=== PATIENT | male | born 1970 | race Hispanic/Latino ===

== ENCOUNTER 2017-07-06 08:27 | Emergency (ER) | payer OTHER ==
[2017-07-06 08:31] VITALS: BMI 35.9
[2017-07-06 08:34] VITALS: BP 135/86; RESP 18; TEMP 98.1
[2017-07-06 09:17] VITALS: PULSE 82; O2SAT 100
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
[2017-07-06] MEDS ORDERED: Lidocaine 5% Patch TD SCH (10:00)
== END 2017-07-06 10:35 | disposition home or self-care (01) ==
LOC: ED 08:27
DX: S39.012A Strain of muscle, fascia and tendon of lower back, initial encounter (principal); X50.9XXA Other and unspecified overexertion or strenuous movements or postures, initial encounter
CPT/HCPCS: 96372; 99284; J1885

== ENCOUNTER 2017-07-11 08:28 | Emergency (ER) | payer OTHER ==
[2017-07-11 08:29] VITALS: BMI 35.9
[2017-07-11 08:49] VITALS: BP 127/84; PULSE 105; RESP 16; TEMP 97.5; O2SAT 96
[2017-07-11] MEDS ORDERED: Lidocaine 5% Patch TD STA (08:53)
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
== END 2017-07-11 10:00 | disposition home or self-care (01) ==
LOC: ED 08:28
DX: M54.5 Low back pain (principal); S39.012A Strain of muscle, fascia and tendon of lower back, initial encounter; X50.9XXA Other and unspecified overexertion or strenuous movements or postures, initial encounter
CPT/HCPCS: 96372; 99283; J1885

== ENCOUNTER 2017-08-09 13:12 | Emergency (ER) | payer OTHER ==
[2017-08-09 13:13] VITALS: BMI 35.9
[2017-08-09 13:32] VITALS: TEMP 98.5; O2SAT 98
[2017-08-09] MEDS ORDERED: Lidocaine 5% Patch TD STA (13:52)
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
[2017-08-09 15:16] VITALS: BP 128/75; PULSE 94; RESP 18
== END 2017-08-09 15:19 | disposition home or self-care (01) ==
LOC: ED 13:12
DX: M54.5 Low back pain (principal)
CPT/HCPCS: 96372; 99282; J1885

== ENCOUNTER 2017-08-22 15:08 | Inpatient (IN) | payer OTHER ==
[2017-08-22 15:16] VITALS: BMI 35.2
[2017-08-22] MEDS ORDERED: Piperacillin/Tazobact 3.375 gm 100 ML IVPB STA (15:23)
[2017-08-22] MEDS ORDERED: Vancomycin 500 mg Inj IVPB ONE (15:23)
[2017-08-22] MEDS ORDERED: Oxycodone/Acetaminophen 10/325 mg Tab PO STA (15:26)
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
[2017-08-22] MEDS ORDERED: Sodium Chloride 0.9% 1,000 ML IV STA (15:32)
[2017-08-22] MEDS ORDERED: Vancomycin 1.75 GM in Sodium Chloride 0.9% 500 ML IVPB ONE (15:45)
[2017-08-22 15:53] LABS: BASO # 0.02 K/mm3 (0.0-2.0); BASO % 0.2 % (0.0-3.0); EOS # 0.2 (0.0-0.7); EOS % 1.6 % (1.5-5.0); GRAN # 8.21 (1.4-6.5); GRAN % 75.4 % (50.0-68.0); HEMATOCRIT 36.5 % (42.0-52.0); LYMPH # 1.7 (1.2-3.4); LYMPH % 15.6 % (22.0-35.0); MEAN CELL VOLUME 78.2 fl (80.0-105.0); MEAN CORPUSCULAR HEMOGLOBIN 25.7 pg (25.0-35.0); MEAN CORPUSCULAR HGB CONC 32.9 g/dl (31.0-37.0); MEAN PLATELET VOLUME 9.8 fl (7.0-11.0); MONO # 0.8 (0.1-0.6); MONO % 7.2 % (1.0-6.0); RED CELL DISTRIBUTION WIDTH 15.2 % (11.5-14.5); WHITE BLOOD COUNT 10.9 10^3/ul (4.5-11.0)
[2017-08-22 16:04] LABS: GFR AFRICAN-AMERICAN > 60; GLUCOSE,RANDOM 102 mg/dL (70-110); TOTAL PROTEIN 8.9 g/dL (5.8-8.3)
[2017-08-22 16:43] LABS: ALB/GLOB RATIO 0.8 (1.1-1.8); ALKALINE PHOSPHATASE 111 U/L (38-126); ALT/SGPT 30 U/L (7-56); AST/SGOT 49 U/L (17-59); BLOOD UREA NITROGEN 21 mg/dL (7-21); CARBON DIOXIDE 25 mmol/L (21-33); CHLORIDE 103 mmol/L (98-107); POTASSIUM 3.7 mmol/L (3.6-5.0); SODIUM 142 mmol/L (132-148)
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
[2017-08-22] MEDS ORDERED: Influenza Vaccine 60 mcg/0.5 mL SYR (4YR UP) IM ONE (20:02)
[2017-08-22] MEDS ORDERED: Pneumococcal 23-Valent Vaccine IM ONE (20:02)
[2017-08-22 21:03] LABS: PH,URINE 5.5 (4.7-8.0); URINE BILIRUBIN NEGATIVE (NEGATIVE); URINE BLOOD MODERATE (NEGATIVE); URINE GLUCOSE (UA) NEGATIVE (NEGATIVE); URINE KETONE NEGATIVE (NEGATIVE); URINE LEUKOCYTE ESTERASE SMALL Leu/uL (NEGATIVE); URINE PROTEIN TRACE mg/dL (<30 mg/dL)
[2017-08-22 21:08] LABS: URINE APPEARANCE SL CLOUDY (CLEAR); URINE COLOR YELLOW (YELLOW)
[2017-08-22 21:17] LABS: URINE BACTERIA MOD (NEG)
[2017-08-22] MEDS: Piperacillin/Tazobact 3.375 gm 100 ML IVPB SCH (21:44)
[2017-08-22] MEDS ORDERED: Vancomycin 1gm in NS 250ml 1 GM/250 ML BAG IVPB SCH (22:00)
[2017-08-23] MEDS: Piperacillin/Tazobact 3.375 gm 100 ML IVPB SCH ×4 (04:59→17:00)
[2017-08-23] MEDS: Vancomycin 1gm in NS 250ml 1 GM/250 ML BAG IVPB SCH ×3 (05:55→21:28)
[2017-08-23 07:14] LABS: BASO # 0.02 K/mm3 (0.0-2.0); BASO % 0.3 % (0.0-3.0); EOS # 0.2 (0.0-0.7); EOS % 2.4 % (1.5-5.0); GRAN # 5.57 (1.4-6.5); GRAN % 71.5 % (50.0-68.0); HEMATOCRIT 33.3 % (42.0-52.0); LYMPH # 1.4 (1.2-3.4); LYMPH % 17.5 % (22.0-35.0); MEAN CELL VOLUME 78.4 fl (80.0-105.0); MEAN CORPUSCULAR HEMOGLOBIN 24.9 pg (25.0-35.0); MEAN CORPUSCULAR HGB CONC 31.8 g/dl (31.0-37.0); MEAN PLATELET VOLUME 9.4 fl (7.0-11.0); MONO # 0.7 (0.1-0.6); MONO % 8.3 % (1.0-6.0); RED CELL DISTRIBUTION WIDTH 15.2 % (11.5-14.5); WHITE BLOOD COUNT 7.8 10^3/ul (4.5-11.0)
[2017-08-23 07:39] LABS: SODIUM 140 mmol/L (132-148)
[2017-08-23 08:10] LABS: ALB/GLOB RATIO 0.8 (1.1-1.8); ALKALINE PHOSPHATASE 87 U/L (38-126); ALT/SGPT 34 U/L (7-56); AST/SGOT 28 U/L (17-59); BILIRUBIN,TOTAL 0.8 mg/dL (0.2-1.3); BLOOD UREA NITROGEN 19 mg/dL (7-21); CALCIUM 9.4 mg/dL (8.4-10.5); CARBON DIOXIDE 22 mmol/L (21-33); CHLORIDE 107 mmol/L (98-107); GFR AFRICAN-AMERICAN > 60; GLUCOSE,RANDOM 84 mg/dL (70-110); POTASSIUM 3.8 mmol/L (3.6-5.0); TOTAL PROTEIN 7.7 g/dL (5.8-8.3)
[2017-08-23 09:14] LABS: TOTAL PROTEIN, SERUM 8.6 g/dL (6.1-8.1)
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
--- NOTE | 2017-08-23 10:08 | RAD ---
HISTORY: COMPARISON: 01/17/2016. TECHNIQUE: Chest PA and lateral FINDINGS: LINES AND TUBES: None. LUNG AND PLEURA: The lungs are well inflated and clear. HEART AND MEDIASTINUM: The heart is not enlarged. The hilar and mediastinal contours are within normal limits. SKELETAL STRUCTURES: The bony structures are within normal limits for the patient's age. VISUALIZED UPPER ABDOMEN: Normal. OTHER FINDINGS: None. IMPRESSION: No active pulmonary disease.
--- NOTE | 2017-08-23 10:13 | PN ---
DATE: LOCATION: The patient is in [facility] in [place], room 564, bed 2. SUBJECTIVE: He was admitted yesterday with lesion in his disk at lumbar 2 and 3 with effacement of the disk and question of infection involving the diarrhea. The patient had no fever at the time of examination. The patient complained of pain which is localized tenderness in the area of the lumbar vertebrae. The patient's past history is significant for diarrhea. He has had sepsis in the past, osteomyelitis and he had prosthesis in the left hip. He has had renal colic. The patient has had treatment for wound infection. The patient is seen this morning. PHYSICAL EXAMINATION VITAL SIGNS: His temperature is 97.7, his heart rate is 89, his blood pressure is 146/87, and O2 saturation on room air is 98%. HEAD AND NECK: Head is normocephalic. The patient's neck, the thyroid is not enlarged. Carotid pulses are present. HEART: NSR. S1 and S2 present. No murmurs. LUNGS: Trachea is central. Breath sounds are vesicular. No adventitious sounds. ABDOMEN: Soft. Liver and spleen not palpable. No tenderness. No masses. CENTRAL NERVOUS SYSTEM: The patient is conscious, rational and oriented. The patient has no focal neurological deficits. MUSCULOSKELETAL: He has a limp and deformity of the left leg. ASSESSMENT AND PLAN: The patient's x-ray showed evidence of a lesion between lumbar 2 and 3. The disk is effaced. On the left leg, there is an ulcer in the medial malleolar area, does not discharge, but patient denies any pain on palpation. He will be seen by a asian studies professor, Dr. Quinones of Infectious Disease [facility] consultant, is going to see the patient regarding the lesion and the management of possible infection in this area. The patient's medication for pain will be Ultram. The patient will have a bone scan done to rule out diagnosis of acute infection or pathology otherwise. The patient has been advised that when he is well, the patient should get a colonoscopy. There is a family history of colon cancer on the father's side, he is . We will x-ray the leg, do a chest x-ray, and electrocardiogram; these are ancillary test as needed at this time. Berna Bernard MD [facility]
[2017-08-23] MEDS: Oxycodone/Acetaminophen 5/325 mg Tab PO PRN (12:47)
--- NOTE | 2017-08-23 13:02 | RAD ---
PROCEDURE: Left Ankle Radiographs. HISTORY: arthritis, ulcer left ankle COMPARISON: None FINDINGS: BONES: Normal. No fracture. JOINTS: Normal. No osteoarthritis. Ankle mortise maintained. Talar dome intact SOFT TISSUES: Normal. OTHER FINDINGS: None. IMPRESSION: No acute fracture
--- NOTE | 2017-08-23 15:34 | US ---
PROCEDURE: Lower extremity ALBINA exam HISTORY: Peripheral vascular disease with pain and ulceration. PHYSICIAN(S): Prem Palmer MD. FINDINGS: The resting ALBINA's are normal: right, 1.25and left, 1.22. The brachial systolic pressures are symmetric. The high thigh pressures and waveforms are relatively normal. The calf PVR waveforms augment normally. No significant gradients are noted across the thighs. The ankle and metatarsal waveforms are relatively normal and symmetric. No significant pressure gradients are noted across the lower legs. IMPRESSION: 1. Normal ALBINA and PVR examination at rest.
--- NOTE | 2017-08-23 17:33 | NM ---
PROCEDURE: Three-phase bone scans HISTORY: Osteomyelitis suspected. Anatomic location of suspected osteomyelitis is not provided COMPARISON: 12/20/2015 three-phase bone scan new lines 08/23/2017 left ankle radiographs. TECHNIQUE: Following administration of 29.6 miCu of Tc MDP multiplanar whole body images were obtained. FINDINGS: Flow component: Unremarkable without focal abnormality Blood pool component: Increased uptake in the soft tissues of the right lower extremity compared to the left. Delayed images at 3:00: Intense retention of radionuclide right calcaneus compared to left os calcis. Degenerative changes left ankle. Other findings: None. IMPRESSION: No evidence of acute osseous process. Additional benign and/or incidental findings described above.
--- NOTE | 2017-08-23 21:53 | CARD ---
APPROVED REPORT EKG Measurement Heart [id number] <Conclusion> Normal sinus rhythm Possible Inferior infarct, age undetermined Abnormal ECG
[2017-08-24] MEDS: Piperacillin/Tazobact 3.375 gm 100 ML IVPB SCH ×5 (00:10→23:35)
[2017-08-24] MEDS: Pantoprazole 40 mg EC Tab PO SCH (05:13)
--- NOTE | 2017-08-24 08:18 | CP.PCM.PN ---
Subjective - Date & Time of Evaluation Date of Evaluation: 08/24/17 Time of Evaluation: 07:45 - Subjective Subjective: Patient is in room 564 bed 2. He complains of back pain. Objective - Vital Signs/Intake and Output Vital Signs (last 24 hours): Temp Pulse Resp BP Pulse Ox 98.2 F 84 20 132/78 95 08/24/17 07:30 08/24/17 07:30 08/24/17 07:30 08/24/17 07:30 08/24/17 07:30 Intake and Output: 08/24/17 08/24/17 06:59 18:59 Intake Total 1200 Output Total 1800 Balance -600 - Medications Medications: Current Medications Acetaminophen (Tylenol 325mg Tab) 650 mg PO Q4H PRN PRN Reason: Pain, moderate (4-7) Piperacillin Sod/Tazobactam Sod (Zosyn 3.375 In Ns 100ml) 100 mls @ 200 mls/hr IVPB Q6 CARIDAD PRN Reason: Protocol Stop: 08/29/17 22:01 Last Admin: 08/24/17 05:13 Dose: 200 mls/hr Vancomycin HCl (Vancomycin 1gm) 1 gm in 250 mls @ 167 mls/hr IVPB Q12 CARIDAD PRN Reason: Protocol Last Admin: 08/23/17 21:28 Dose: 167 mls/hr Mupirocin (Bactroban Ointment) 0 gm TOP BID CARIDAD Last Admin: 08/23/17 16:59 Dose: 1 applic Oxycodone/Acetaminophen (Percocet 5/325 Mg Tab) 1 tab PO Q4H PRN PRN Reason: Pain, moderate (4-7) Stop: 08/26/17 12:27 Last Admin: 08/23/17 12:47 Dose: 1 tab Pantoprazole Sodium (Protonix Ec Tab) 40 mg PO 0600 [facility] Last Admin: 08/24/17 05:13 Dose: 40 mg Tramadol HCl (Ultram) 50 mg PO TID PRN PRN Reason: Pain, severe (8-10) Last Admin: 08/23/17 09:21 Dose: 50 mg - Labs Labs: 08/23/17 06:40 08/23/17 06:40 - Constitutional Appears: No Acute Distress - Head Exam Head Exam: ATRAUMATIC, NORMOCEPHALIC - Respiratory Exam Respiratory Exam: Clear to Ausculation Bilateral, NORMAL BREATHING PATTERN - Cardiovascular Exam Cardiovascular Exam: +S1, +S2 - GI/Abdominal Exam GI & Abdominal Exam: Soft, Normal Bowel Sounds. absent: Tenderness - Neurological Exam Neurological Exam: Alert, Awake, Oriented x3 Assessment and Plan - Assessment and Plan (Free Text) Assessment: L2-L3 disk space infection?? Left ankle ulceration Back pain H/O kidney stones H/O left hip arthroplasty Plan: Patient had CT spine as outpatient which shows disk space infection between L2 and L3. Patient could not undergo MRI due to pins in his left hip from surgery many years ago. Bone Scan was done which does not show any findings in the spine. SPEP and UPEP are pending Left ankle wound culture is pending. continue antibiotics as per infectious disease. urine culture is pending. continue Percocet for pain. Podiatry and infectious disease consultations appreciated. will order iron infusion for low iron. Patient has been advised to have colonoscopy as outpatient.
[2017-08-24] MEDS: Vancomycin 1gm in NS 250ml 1 GM/250 ML BAG IVPB SCH ×2 (09:54→21:31)
--- NOTE | 2017-08-24 11:00 | CP.PCM.PCO ---
Physician Communication Note - Physician Communication Note Physician Communication Note: Tests being done,unable to examine;started Vanco/ Zosyn;Neurosurg eval asked
--- NOTE | 2017-08-24 12:08 | CP.PCM.PN ---
<Elliott Castaneda - Last Filed: 08/24/17 12:04> Subjective - Date & Time of Evaluation Date of Evaluation: 08/24/17 Time of Evaluation: 12:04 - Subjective Subjective: 47 y/o male seen and evaluated at bedside with attending Dr. Nicholson for chronic left lateral leg wound. Patient appears to be resting comfortably in his bed and appears in NAD. Patient is AAOx3 and denies of any acute overnight events. Patient states that he has been receiving abx and is feeling a lot better. Patient denies of F/N/V/C/SOB/CP today. Patient denies of any other pedal complains at this time. Objective - Vital Signs/Intake and Output Vital Signs (last 24 hours): Temp Pulse Resp BP Pulse Ox 98.2 F 84 20 132/78 95 08/24/17 07:30 08/24/17 07:30 08/24/17 07:30 08/24/17 07:30 08/24/17 07:30 Intake and Output: 08/24/17 08/24/17 06:59 18:59 Intake Total 1200 Output Total 1800 Balance -600 - Medications Medications: Current Medications Acetaminophen (Tylenol 325mg Tab) 650 mg PO Q4H PRN PRN Reason: Pain, moderate (4-7) Piperacillin Sod/Tazobactam Sod (Zosyn 3.375 In Ns 100ml) 100 mls @ 200 mls/hr IVPB Q6 CARIDAD PRN Reason: Protocol Stop: 08/29/17 22:01 Last Admin: 08/24/17 11:54 Dose: 200 mls/hr Vancomycin HCl (Vancomycin 1gm) 1 gm in 250 mls @ 167 mls/hr IVPB Q12 CARIDAD PRN Reason: Protocol Last Admin: 08/24/17 09:54 Dose: 167 mls/hr Mupirocin (Bactroban Ointment) 0 gm TOP BID [facility] Last Admin: 08/24/17 11:23 Dose: 1 applic Oxycodone/Acetaminophen (Percocet 5/325 Mg Tab) 1 tab PO Q4H PRN PRN Reason: Pain, moderate (4-7) Stop: 08/26/17 12:27 Last Admin: 08/23/17 12:47 Dose: 1 tab Pantoprazole Sodium (Protonix Ec Tab) 40 mg PO 0600 [facility] Last Admin: 08/24/17 05:13 Dose: 40 mg Tramadol HCl (Ultram) 50 mg PO TID PRN PRN Reason: Pain, severe (8-10) Last Admin: 08/23/17 09:21 Dose: 50 mg - Labs Labs: 08/23/17 06:40 08/23/17 06:40 - Constitutional Appears: Well, Non-toxic, No Acute Distress - Extremities Exam Extremities Exam: absent: Calf Tenderness Additional comments: Bilateral LE exam VASC: DP/PT pulses are palpable on the right foot but non-palpable on the left foot, MAIL CLERK: < 3 sec to all digits, TG: warm to cool from proximal to distal on the right LE and cool to cool on the left LE, no pitting or non-pitting edema noted on the left LE DERM: Wound measuring approximately 3.7cm x 3.5cmx 0.1 cm noted on the distal lateral aspect of the left leg, minimal serous and purulent drainage noted on the bandage which appears to be a lot less than yesterday, no malodor, surrounding erythema present, no tunneling, no undermining, no inter digital maceration noted b/l NEURO: Protective sensation grossly intact ORTHO: mild tenderness on palpation of the wound site, Limb length is shorter on the left compared to the right LE - Neurological Exam Neurological Exam: Alert, Awake, Oriented x3 - Psychiatric Exam Psychiatric exam: Normal Affect, Normal Mood Assessment and Plan - Assessment and Plan (Free Text) Assessment: 47 y/o male seen and evaluated at bedside for chronic infected left lateral leg wound Plan: Patient seen and evaluated at bedside with Dr. Marcial Labs, vitals and charts reviewed: Afebrile and WBC @ 7.8 as of yesterday ( trending down) Cultures (Prelim): G+ cocci Dressing applied using Bactroban, optifoam, SHOAIB bandage Arterial duplex shows normal ALBINA/PVR No evidence of acute osseous events seen on bone scan Patient is currently on abx - IV abx as per ID - ID on board Podiatry will continue to follow patient while in house <Sharif Nicholson - Last Filed: 08/24/17 18:21> Objective - Vital Signs/Intake and Output Vital Signs (last 24 hours): Temp Pulse Resp BP Pulse Ox 98 F 84 18 132/83 99 08/24/17 16:00 08/24/17 16:00 08/24/17 16:00 08/24/17 16:00 08/24/17 16:00 Intake and Output: 08/24/17 08/24/17 06:59 18:59 Intake Total 1200 540 Output Total 1800 Balance -600 540 - Medications Medications: Current Medications Acetaminophen (Tylenol 325mg Tab) 650 mg PO Q4H PRN PRN Reason: Pain, moderate (4-7) Piperacillin Sod/Tazobactam Sod (Zosyn 3.375 In Ns 100ml) 100 mls @ 200 mls/hr IVPB Q6 CARIDAD PRN Reason: Protocol Stop: 08/29/17 22:01 Last Admin: 08/24/17 17:49 Dose: 200 mls/hr Vancomycin HCl (Vancomycin 1gm) 1 gm in 250 mls @ 167 mls/hr IVPB Q12 CARIDAD PRN Reason: Protocol Last Admin: 08/24/17 09:54 Dose: 167 mls/hr Mupirocin (Bactroban Ointment) 0 gm TOP BID [facility] Last Admin: 08/24/17 11:23 Dose: 1 applic Oxycodone/Acetaminophen (Percocet 5/325 Mg Tab) 1 tab PO Q4H PRN PRN Reason: Pain, moderate (4-7) Stop: 08/26/17 12:27 Last Admin: 08/23/17 12:47 Dose: 1 tab Pantoprazole Sodium (Protonix Ec Tab) 40 mg PO 0600 [facility] Last Admin: 08/24/17 05:13 Dose: 40 mg Tramadol HCl (Ultram) 50 mg PO TID PRN PRN Reason: Pain, severe (8-10) Last Admin: 08/23/17 09:21 Dose: 50 mg - Labs Labs: 08/23/17 06:40 08/23/17 06:40 Attending/Attestation - Attestation I have personally seen and examined this patient.: Yes I have fully participated in the care of the patient.: Yes I have reviewed all pertinent clinical information, including history, physical exam and plan: Yes
[2017-08-24 12:19] LABS: ABNORMAL PROTEIN BAND 1 0.72 g/dL (None Detected); BETA 1 GLOBULIN 0.5 g/dL (0.4-0.6); BETA 2 GLOBULIN 1.7 g/dL (0.2-0.5); GAMMA GLOBULIN 1.5 g/dL (0.8-1.7)
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
[2017-08-25] MEDS: Oxycodone/Acetaminophen 5/325 mg Tab PO PRN (03:47)
[2017-08-25] MEDS: Piperacillin/Tazobact 3.375 gm 100 ML IVPB SCH ×4 (05:44→23:27)
[2017-08-25] MEDS: Pantoprazole 40 mg EC Tab PO SCH (06:58)
--- NOTE | 2017-08-25 08:31 | CP.PCM.PN ---
<Susan Solano - Last Filed: 08/25/17 08:28> Subjective - Date & Time of Evaluation Date of Evaluation: 08/25/17 Time of Evaluation: 07:28 - Subjective Subjective: 47 y/o male seen and evaluated at bedside with attending Dr. Nicholson for chronic left lateral leg wound. Patient appears to be resting comfortably in his bed, AAOx3 and denies of any acute overnight events. Patient denies of any pain to the ulceration site to left leg. Patient denies of F/N/V/C/SOB/CP today. Objective - Vital Signs/Intake and Output Vital Signs (last 24 hours): Temp Pulse Resp BP Pulse Ox 98 F 85 20 129/81 95 08/25/17 07:51 08/25/17 07:51 08/25/17 07:51 08/25/17 07:51 08/25/17 07:51 Intake and Output: 08/25/17 08/25/17 06:59 18:59 Intake Total 1750 Output Total 800 Balance 950 - Medications Medications: Current Medications Acetaminophen (Tylenol 325mg Tab) 650 mg PO Q4H PRN PRN Reason: Pain, moderate (4-7) Piperacillin Sod/Tazobactam Sod (Zosyn 3.375 In Ns 100ml) 100 mls @ 200 mls/hr IVPB Q6 [facility] PRN Reason: Protocol Stop: 08/29/17 22:01 Last Admin: 08/25/17 05:44 Dose: 200 mls/hr Vancomycin HCl (Vancomycin 1gm) 1 gm in 250 mls @ 167 mls/hr IVPB Q12 [facility] PRN Reason: Protocol Last Admin: 08/24/17 21:31 Dose: 167 mls/hr Mupirocin (Bactroban Ointment) 0 gm TOP BID [facility] Last Admin: 08/24/17 11:23 Dose: 1 applic Oxycodone/Acetaminophen (Percocet 5/325 Mg Tab) 1 tab PO Q4H PRN PRN Reason: Pain, moderate (4-7) Stop: 08/26/17 12:27 Last Admin: 08/25/17 03:47 Dose: 1 tab Pantoprazole Sodium (Protonix Ec Tab) 40 mg PO 0600 [facility] Last Admin: 08/25/17 06:58 Dose: 40 mg Tramadol HCl (Ultram) 50 mg PO TID PRN PRN Reason: Pain, severe (8-10) Last Admin: 08/23/17 09:21 Dose: 50 mg - Labs Labs: 08/23/17 06:40 08/23/17 06:40 - Constitutional Appears: Well - Head Exam Head Exam: ATRAUMATIC - Extremities Exam Additional comments: Bilateral LE exam DERM: Open wound noted to lateral aspect of left leg measuring approximately 4cm x 3.5cmx 0.3 cm noted on the distal lateral aspect of the left leg, minimal serosansuinous drainage noted on the bandage, no purulent drainage is noted, no malodor, surrounding erythema present <0.5cm margin, no tunneling, no undermining, no inter digital maceration noted b/l VASC: DP/PT pulses are palpable on the right foot but non-palpable on the left foot, CONDENSER TUBE TENDER: < 3 sec to all digits, TG: warm to cool from proximal to distal on the right LE and cool to cool on the left LE, no pitting or non-pitting edema noted on the left LE NEURO: Protective sensation grossly intact ORTHO: mild tenderness on palpation of the wound site, Limb length is shorter on the left compared to the right LE - Neurological Exam Neurological Exam: Alert, Awake, Oriented x3 - Psychiatric Exam Psychiatric exam: Normal Affect, Normal Mood - Skin Skin Exam: Normal Color, Warm Assessment and Plan - Assessment and Plan (Free Text) Assessment: 47 y/o male seen and evaluated at bedside for chronic infected left lateral leg wound Plan: Patient seen and evaluated at bedside with Dr. Nicholson Labs, vitals and charts reviewed: Afebrile Cultures (Prelim): G+ cocci Dressing applied using Bactroban, optifoam, SHOAIB bandage Arterial duplex shows normal ALBINA/PVR No evidence of acute osseous events seen on bone scan Patient is currently on abx - IV abx as per ID - ID on board Podiatry will continue to follow patient while in house <Sharif Nicholson - Last Filed: 08/25/17 08:39> Objective - Vital Signs/Intake and Output Vital Signs (last 24 hours): Temp Pulse Resp BP Pulse Ox 98 F 85 20 129/81 95 08/25/17 07:51 08/25/17 07:51 08/25/17 07:51 08/25/17 07:51 08/25/17 07:51 Intake and Output: 08/25/17 08/25/17 06:59 18:59 Intake Total 1750 Output Total 800 Balance 950 - Medications Medications: Current Medications Acetaminophen (Tylenol 325mg Tab) 650 mg PO Q4H PRN PRN Reason: Pain, moderate (4-7) Piperacillin Sod/Tazobactam Sod (Zosyn 3.375 In Ns 100ml) 100 mls @ 200 mls/hr IVPB Q6 [facility] PRN Reason: Protocol Stop: 08/29/17 22:01 Last Admin: 08/25/17 05:44 Dose: 200 mls/hr Vancomycin HCl (Vancomycin 1gm) 1 gm in 250 mls @ 167 mls/hr IVPB Q12 [facility] PRN Reason: Protocol Last Admin: 08/24/17 21:31 Dose: 167 mls/hr Mupirocin (Bactroban Ointment) 0 gm TOP BID [facility] Last Admin: 08/24/17 11:23 Dose: 1 applic Oxycodone/Acetaminophen (Percocet 5/325 Mg Tab) 1 tab PO Q4H PRN PRN Reason: Pain, moderate (4-7) Stop: 08/26/17 12:27 Last Admin: 08/25/17 03:47 Dose: 1 tab Pantoprazole Sodium (Protonix Ec Tab) 40 mg PO 0600 [facility] Last Admin: 08/25/17 06:58 Dose: 40 mg Tramadol HCl (Ultram) 50 mg PO TID PRN PRN Reason: Pain, severe (8-10) Last Admin: 08/23/17 09:21 Dose: 50 mg - Labs Labs: 08/23/17 06:40 08/23/17 06:40 Attending/Attestation - Attestation I have personally seen and examined this patient.: Yes I have fully participated in the care of the patient.: Yes I have reviewed all pertinent clinical information, including history, physical exam and plan: Yes
[2017-08-25] MEDS: Vancomycin 1gm in NS 250ml 1 GM/250 ML BAG IVPB SCH ×2 (09:48→22:03)
--- NOTE | 2017-08-25 10:59 | PN ---
DATE: LOCATION: The patient is in the [facility] in [place], room 562, bed 2. SUBJECTIVE: The patient was admitted with lesion in the lower spine lumbar area 2 and 3. The patient has pain in the back. The CT scan showed evidence of effacement and infection of the disk at space L2 and L3. The patient's past history is significant that he has had sepsis and osteomyelitis. The patient has had renal colic. This morning, the patient states that he seems to feel better. The pain has subsided. PHYSICAL EXAMINATION: VITAL SIGNS: His pulse is 85, blood pressure is 130/80, his respirations are 20, O2 saturation is 95% on room air, and temperature is 98.4. LUNGS: Clear. HEART: Normal sinus rhythm. ABDOMEN: Soft. Liver and spleen are not palpable. No tenderness. CENTRAL NERVOUS SYSTEM: No focal deficit. LABORATORY DATA: The patient's blood work shows that the patient has anemia and questionable anemia related to iron deficiency. The patient also had abnormal proteins in the blood. The patient's iron was low at 20. The patient's total protein is 8.6. The patient is on antibiotic treatment. IMPRESSION AND PLAN: At this time, the patient will be seen by retail seasonal specialist. Hematology consultation will be done by Dr. Arriola. The patient is seen by Dr. Quinones, his Infectious Disease automotive service consultant and we will continue on current management and will continue to followup on tests. MEDICATIONS: The patient is on local treatment with Bactroban for the ulcer of the ankle area of the left leg. The patient has pain medication with Percocet. The patient is on Protonix 40 mg daily. The patient is on tramadol 50 mg three times a day p.r.n. and vancomycin 1 gram q. 12 hours. The patient is on Zosyn 3.375 mg every 6 hours. He was given infusion of iron. DIAGNOSES: Possible infection in the spine and anemia. Overall prognosis is guarded and condition is improving. Berna Bernard MD [facility]
--- NOTE | 2017-08-25 14:48 | CP.PCM.PN ---
Subjective - Date & Time of Evaluation Date of Evaluation: 08/25/17 Time of Evaluation: 11:25 - Subjective Subjective: Patient has less back pain, able to walk around the medical floor corridors, no fevers overnight. No urinary or bowel incontinence. Objective - Vital Signs/Intake and Output Vital Signs (last 24 hours): Temp Pulse Resp BP Pulse Ox 98 F 85 20 129/81 95 08/25/17 07:51 08/25/17 07:51 08/25/17 07:51 08/25/17 07:51 08/25/17 07:51 Intake and Output: 08/25/17 08/25/17 06:59 18:59 Intake Total 1750 Output Total 800 Balance 950 - Medications Medications: Current Medications Acetaminophen (Tylenol 325mg Tab) 650 mg PO Q4H PRN PRN Reason: Pain, moderate (4-7) Piperacillin Sod/Tazobactam Sod (Zosyn 3.375 In Ns 100ml) 100 mls @ 200 mls/hr IVPB Q6 [facility] PRN Reason: Protocol Stop: 08/29/17 22:01 Last Admin: 08/25/17 05:44 Dose: 200 mls/hr Vancomycin HCl (Vancomycin 1gm) 1 gm in 250 mls @ 167 mls/hr IVPB Q12 [facility] PRN Reason: Protocol Last Admin: 08/25/17 09:48 Dose: 167 mls/hr Mupirocin (Bactroban Ointment) 0 gm TOP BID [facility] Last Admin: 08/25/17 08:00 Dose: 1 applic Oxycodone/Acetaminophen (Percocet 5/325 Mg Tab) 1 tab PO Q4H PRN PRN Reason: Pain, moderate (4-7) Stop: 08/26/17 12:27 Last Admin: 08/25/17 03:47 Dose: 1 tab Pantoprazole Sodium (Protonix Ec Tab) 40 mg PO 0600 [facility] Last Admin: 08/25/17 06:58 Dose: 40 mg Tramadol HCl (Ultram) 50 mg PO TID PRN PRN Reason: Pain, severe (8-10) Last Admin: 08/23/17 09:21 Dose: 50 mg - Labs Labs: 08/23/17 06:40 08/23/17 06:40 - Constitutional Appears: Non-toxic - Head Exam Head Exam: NORMAL INSPECTION - ENT Exam ENT Exam: Mucous Membranes Moist - Neck Exam Neck Exam: absent: Meningismus - Respiratory Exam Respiratory Exam: Decreased Breath Sounds - Cardiovascular Exam Cardiovascular Exam: +S1, +S2 - GI/Abdominal Exam GI & Abdominal Exam: Soft. absent: Tenderness Assessment and Plan - Assessment and Plan (Free Text) Plan: Assessment Possible L2-L3 disc space infection / discitis R/O osteomyelitis left hip arthroplasty and left hip prosthetic joint infection S/P treatment with antibiotics and surgery history of nephrolithiasis obesity with BMI 35 Plan continue Vancomycin and Zosyn day 2 pending final blood cx results (negative so far); ESR and CRP are both elevated; reviewed CT scan of the lumbar spine; bone scan has been done but did not show increased uptake in the area - would prefer to do MRI, but if this cannot be done, would suggest WBC scan May need at least 4-6 weeks of antibiotics if proven to be disc space infection suggest Neurosurgery evaluation will continue to monitor clinically
[2017-08-26] MEDS: Oxycodone/Acetaminophen 5/325 mg Tab PO PRN (03:32)
[2017-08-26] MEDS: Piperacillin/Tazobact 3.375 gm 100 ML IVPB SCH ×3 (06:47→17:28)
[2017-08-26] MEDS: Pantoprazole 40 mg EC Tab PO SCH (06:47)
[2017-08-26] MEDS: Vancomycin 1gm in NS 250ml 1 GM/250 ML BAG IVPB SCH ×2 (09:23→21:48)
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
--- NOTE | 2017-08-26 11:05 | CP.PCM.PN ---
<RussKarolineSocorro - Last Filed: 08/26/17 11:01> Subjective - Date & Time of Evaluation Date of Evaluation: 08/26/17 Time of Evaluation: 08:40 - Subjective Subjective: Podiatry note for Dr. Nicholson 47 y/o male seen and evaluated at bedside this AM for chronic left lateral leg wound. Patient appears to be resting comfortably in his bed, AAOx3 and denies of any acute overnight events. Patient admits to slight pain to the ulceration site to left leg when changing the dressing. Patient denies of F/N/V/C/SOB/CP today. Objective - Vital Signs/Intake and Output Vital Signs (last 24 hours): Temp Pulse Resp BP Pulse Ox 97.6 F 80 20 141/96 H 96 08/26/17 07:31 08/26/17 07:31 08/26/17 07:31 08/26/17 07:31 08/26/17 07:31 Intake and Output: 08/26/17 08/26/17 06:59 18:59 Intake Total 960 Balance 960 - Medications Medications: Current Medications Acetaminophen (Tylenol 325mg Tab) 650 mg PO Q4H PRN PRN Reason: Pain, moderate (4-7) Piperacillin Sod/Tazobactam Sod (Zosyn 3.375 In Ns 100ml) 100 mls @ 200 mls/hr IVPB Q6 [facility] PRN Reason: Protocol Stop: 08/29/17 22:01 Last Admin: 08/26/17 06:47 Dose: 200 mls/hr Vancomycin HCl (Vancomycin 1gm) 1 gm in 250 mls @ 167 mls/hr IVPB Q12 [facility] PRN Reason: Protocol Last Admin: 08/26/17 09:23 Dose: 167 mls/hr Mupirocin (Bactroban Ointment) 0 gm TOP BID [facility] Last Admin: 08/25/17 17:06 Dose: Not Given Oxycodone/Acetaminophen (Percocet 5/325 Mg Tab) 1 tab PO Q4H PRN PRN Reason: Pain, moderate (4-7) Stop: 08/26/17 12:27 Last Admin: 08/26/17 03:32 Dose: 1 tab Pantoprazole Sodium (Protonix Ec Tab) 40 mg PO 0600 [facility] Last Admin: 08/26/17 06:47 Dose: 40 mg Tramadol HCl (Ultram) 50 mg PO TID PRN PRN Reason: Pain, severe (8-10) Last Admin: 08/23/17 09:21 Dose: 50 mg - Labs Labs: 08/23/17 06:40 08/23/17 06:40 - Constitutional Appears: Well, Non-toxic, No Acute Distress - Head Exam Head Exam: ATRAUMATIC - Extremities Exam Additional comments: Bilateral LE exam DERM: Open wound noted to lateral aspect of left leg measuring approximately 4cm x 3.5cmx 0.3 cm noted on the distal lateral aspect of the left leg, minimal serosansuinous drainage noted on the bandage, no purulent drainage is noted, no malodor, surrounding erythema present <0.5cm margin, no tunneling, no undermining, no inter digital maceration noted b/l VASC: DP/PT pulses are palpable on the right foot but non-palpable on the left foot, MULTI PUNCH OPERATOR: < 3 sec to all digits, TG: warm to cool from proximal to distal on the right LE and cool to cool on the left LE, no pitting or non-pitting edema noted on the left LE NEURO: Protective sensation grossly intact ORTHO: mild tenderness on palpation of the wound site, Limb length is shorter on the left compared to the right LE - Neurological Exam Neurological Exam: Alert, Awake, Oriented x3 - Psychiatric Exam Psychiatric exam: Normal Affect, Normal Mood - Skin Skin Exam: Normal Color, Warm Assessment and Plan - Assessment and Plan (Free Text) Assessment: 47 y/o male seen and evaluated at bedside for chronic infected left lateral leg wound Plan: Patient seen and evaluated at bedside Labs, vitals and charts reviewed: Afebrile Cultures final; Staph Aureus Dressing applied using Bactroban, optifoam, SHOAIB bandage Arterial duplex shows normal ALBINA/PVR No evidence of acute osseous events seen on bone scan Patient is currently on abx - IV abx as per ID - ID on board Podiatry will continue to follow patient while in house <Sharif Nicholson - Last Filed: 08/29/17 11:15> Objective - Vital Signs/Intake and Output Vital Signs (last 24 hours): Temp Pulse Resp BP Pulse Ox 98.1 F 83 20 129/87 99 08/29/17 07:30 08/29/17 07:30 08/29/17 07:30 08/29/17 07:30 08/29/17 07:30 Intake and Output: 08/29/17 08/29/17 06:59 18:59 Intake Total 780 Output Total 800 Balance -20 - Medications Medications: Current Medications Acetaminophen (Tylenol 325mg Tab) 650 mg PO Q4H PRN PRN Reason: Pain, moderate (4-7) Mupirocin (Bactroban Ointment) 0 gm TOP BID [facility] Last Admin: 08/28/17 12:13 Dose: Not Given Pantoprazole Sodium (Protonix Ec Tab) 40 mg PO 0600 [facility] Last Admin: 08/29/17 06:01 Dose: 40 mg Tramadol HCl (Ultram) 50 mg PO TID PRN PRN Reason: Pain, severe (8-10) Last Admin: 08/28/17 01:11 Dose: 50 mg - Labs Labs: 08/27/17 09:15 08/28/17 06:30 PT 14.5 SECONDS (9.4-12.5) H 08/29/17 06:05 INR 1.31 (0.93-1.08) H 08/29/17 06:05 APTT 32.0 Seconds (25.1-36.5) 08/29/17 06:05 Attending/Attestation - Attestation I have personally seen and examined this patient.: Yes I have fully participated in the care of the patient.: Yes I have reviewed all pertinent clinical information, including history, physical exam and plan: Yes
--- NOTE | 2017-08-26 16:39 | CP.PCM.PN ---
Subjective - Date & Time of Evaluation Date of Evaluation: 08/26/17 Time of Evaluation: 15:25 - Subjective Subjective: Patient states his back is "80% better." He denies bowel or bladder incontinence , no fevers overnight. Objective - Vital Signs/Intake and Output Vital Signs (last 24 hours): Temp Pulse Resp BP Pulse Ox 97.6 F 80 20 141/96 H 96 08/26/17 07:31 08/26/17 07:31 08/26/17 07:31 08/26/17 07:31 08/26/17 07:31 Intake and Output: 08/26/17 08/26/17 06:59 18:59 Intake Total 960 Balance 960 - Medications Medications: Current Medications Acetaminophen (Tylenol 325mg Tab) 650 mg PO Q4H PRN PRN Reason: Pain, moderate (4-7) Piperacillin Sod/Tazobactam Sod (Zosyn 3.375 In Ns 100ml) 100 mls @ 200 mls/hr IVPB Q6 [facility] PRN Reason: Protocol Stop: 08/29/17 22:01 Last Admin: 08/26/17 06:47 Dose: 200 mls/hr Vancomycin HCl (Vancomycin 1gm) 1 gm in 250 mls @ 167 mls/hr IVPB Q12 [facility] PRN Reason: Protocol Last Admin: 08/25/17 22:03 Dose: 167 mls/hr Mupirocin (Bactroban Ointment) 0 gm TOP BID [facility] Last Admin: 08/25/17 17:06 Dose: Not Given Oxycodone/Acetaminophen (Percocet 5/325 Mg Tab) 1 tab PO Q4H PRN PRN Reason: Pain, moderate (4-7) Stop: 08/26/17 12:27 Last Admin: 08/26/17 03:32 Dose: 1 tab Pantoprazole Sodium (Protonix Ec Tab) 40 mg PO 0600 [facility] Last Admin: 08/26/17 06:47 Dose: 40 mg Tramadol HCl (Ultram) 50 mg PO TID PRN PRN Reason: Pain, severe (8-10) Last Admin: 08/23/17 09:21 Dose: 50 mg - Labs Labs: 08/23/17 06:40 08/23/17 06:40 - Constitutional Appears: Non-toxic - Head Exam Head Exam: NORMAL INSPECTION - ENT Exam ENT Exam: Mucous Membranes Moist - Neck Exam Neck Exam: absent: Lymphadenopathy, Meningismus - Respiratory Exam Respiratory Exam: Decreased Breath Sounds. absent: Rales - Cardiovascular Exam Cardiovascular Exam: +S1, +S2 - GI/Abdominal Exam GI & Abdominal Exam: Soft. absent: Tenderness Assessment and Plan - Assessment and Plan (Free Text) Plan: Assessment Possible L2-L3 disc space infection / discitis R/O osteomyelitis left hip arthroplasty and left hip prosthetic joint infection S/P treatment with antibiotics and surgery history of nephrolithiasis obesity with BMI 35 Plan continue Vancomycin and Zosyn day 3 pending final blood cx results (negative so far); ESR and CRP are both elevated; reviewed CT scan of the lumbar spine; bone scan has been done but did not show increased uptake in the area - would prefer to do MRI, but if this cannot be done, would suggest WBC scan May need at least 4-6 weeks of antibiotics if proven to be disc space infection awaiting Neurosurgery evaluation will continue to monitor clinically
[2017-08-27] MEDS: Piperacillin/Tazobact 3.375 gm 100 ML IVPB SCH ×5 (00:01→23:22)
[2017-08-27] MEDS: Pantoprazole 40 mg EC Tab PO SCH (05:04)
--- NOTE | 2017-08-27 08:03 | CP.PCM.PN ---
Subjective - Date & Time of Evaluation Date of Evaluation: 08/27/17 Time of Evaluation: 07:40 - Subjective Subjective: Patient seen this morning in room 564 bed 2. He says back pain is improving. Objective - Vital Signs/Intake and Output Vital Signs (last 24 hours): Temp Pulse Resp BP Pulse Ox 98.2 F 107 H 20 130/88 99 08/26/17 16:09 08/26/17 16:09 08/26/17 16:09 08/26/17 16:09 08/26/17 16:09 Intake and Output: 08/27/17 08/27/17 06:59 18:59 Intake Total 1020 Output Total 400 Balance 620 - Medications Medications: Current Medications Acetaminophen (Tylenol 325mg Tab) 650 mg PO Q4H PRN PRN Reason: Pain, moderate (4-7) Piperacillin Sod/Tazobactam Sod (Zosyn 3.375 In Ns 100ml) 100 mls @ 200 mls/hr IVPB Q6 CARIDAD PRN Reason: Protocol Stop: 08/29/17 22:01 Last Admin: 08/27/17 05:04 Dose: 200 mls/hr Vancomycin HCl (Vancomycin 1gm) 1 gm in 250 mls @ 167 mls/hr IVPB Q12 CARIDAD PRN Reason: Protocol Last Admin: 08/26/17 21:48 Dose: 167 mls/hr Mupirocin (Bactroban Ointment) 0 gm TOP BID [facility] Last Admin: 08/26/17 17:58 Dose: Not Given Pantoprazole Sodium (Protonix Ec Tab) 40 mg PO 0600 [facility] Last Admin: 08/27/17 05:04 Dose: 40 mg Tramadol HCl (Ultram) 50 mg PO TID PRN PRN Reason: Pain, severe (8-10) Last Admin: 08/23/17 09:21 Dose: 50 mg - Labs Labs: 08/23/17 06:40 08/23/17 06:40 - Constitutional Appears: No Acute Distress - Head Exam Head Exam: ATRAUMATIC, NORMOCEPHALIC - Respiratory Exam Respiratory Exam: Clear to Ausculation Bilateral, NORMAL BREATHING PATTERN - Cardiovascular Exam Cardiovascular Exam: +S1, +S2 - GI/Abdominal Exam GI & Abdominal Exam: Soft, Normal Bowel Sounds. absent: Tenderness - Neurological Exam Neurological Exam: Alert, Awake, Oriented x3 Assessment and Plan - Assessment and Plan (Free Text) Assessment: Possible L2-L3 disk space infection Left leg wound Abnormal protein electrophoresis Anemia H/O Left hip arthroplasty Plan: Patient says back pain is improving. CT scan showed L2-L3 disk space infection. Bone scan showed no uptake in the area. Patient has not been seen yet by neurosurgery although consultation has been ordered. Patient's electrophoresis is abnormal and he has iron deficiency anemia. Stool for occult blood is ordered. Hematology consult with Dr. Arriola is also ordered. awaiting hematology, neurosurgery recommendations and results of WBC scan.
[2017-08-27] MEDS ORDERED: Barium Sulfate Susp 2.1% w/v, 2.0% w/w 450 mL Bottle PO ONE (08:32)
[2017-08-27 09:27] LABS: BASO # 0.04 K/mm3 (0.0-2.0); BASO % 0.6 % (0.0-3.0); EOS # 0.2 (0.0-0.7); EOS % 3.4 % (1.5-5.0); GRAN # 4.48 (1.4-6.5); GRAN % 69.9 % (50.0-68.0); HEMATOCRIT 35.1 % (42.0-52.0); LYMPH # 1.3 (1.2-3.4); LYMPH % 19.9 % (22.0-35.0); MEAN CELL VOLUME 77.8 fl (80.0-105.0); MEAN CORPUSCULAR HEMOGLOBIN 24.8 pg (25.0-35.0); MEAN CORPUSCULAR HGB CONC 31.9 g/dl (31.0-37.0); MEAN PLATELET VOLUME 9.1 fl (7.0-11.0); MONO # 0.4 (0.1-0.6); MONO % 6.2 % (1.0-6.0); RED CELL DISTRIBUTION WIDTH 14.7 % (11.5-14.5); WHITE BLOOD COUNT 6.4 10^3/ul (4.5-11.0)
[2017-08-27] MEDS: Vancomycin 1gm in NS 250ml 1 GM/250 ML BAG IVPB SCH ×2 (09:37→23:23)
[2017-08-27 09:44] LABS: BLOOD UREA NITROGEN 13 mg/dL (7-21); CALCIUM 9.3 mg/dL (8.4-10.5); CARBON DIOXIDE 25 mmol/L (21-33); CHLORIDE 104 mmol/L (98-107); GFR AFRICAN-AMERICAN > 60; GLUCOSE,RANDOM 114 mg/dL (70-110); POTASSIUM 3.5 mmol/L (3.6-5.0); SODIUM 139 mmol/L (132-148)
--- NOTE | 2017-08-27 12:05 | CON ---
DATE: CONSULT REQUESTED BY: Moris Bernard MD REASON FOR CONSULTATION: Back pain , MGUS, anemia HISTORY OF PRESENT ILLNESS: Mr. Demarco is a 47-year-old male admitted to the hospital with severe back pain. Serum protein electrophoresis showed M protein at 0.7 g/dL. He had a bone scan done, which showed no evidence of acute osseous process. He also reports 20 pounds of weight loss in past few weeks. He had back pain for 3 to 4 weeks. He has also anemia with severe iron deficiency. He has positive family history for colon cancer. He denies night sweats. He also has left leg wound. There is possibility of diskitis. It is being worked up L2-L3. He cannot get MRI of the spine because he had procedures in the left hip. No fever, no chills, and no rigors. No urinary incontinence. PAST MEDICAL HISTORY: History of dizziness and osteoarthritis. PAST SURGICAL HISTORY: Left hip replacement and left hip infection 2 years ago. ALLERGIES: MEROPENEM AND IBUPROFEN. PERSONAL HISTORY: Never smoked. No history of alcohol abuse. 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 REVIEW OF SYSTEMS: As per HPI. A 12-point of review of systems reviewed and negative. PHYSICAL EXAMINATION GENERAL: Comfortable in bed, in no acute distress. VITAL SIGNS: Temperature of 97.7, heart rate is 89 per minute, respiratory rate is 15 per minute, blood pressure is 140/70, and pulse oximetry is 98% on room air. HEENT: Pallor positive. NECK: Supple. No lymphadenopathy. CHEST: Air entry present and equal bilaterally. No added sounds. CARDIOVASCULAR: S1 and S2 normal. No murmur and no gallop. ABDOMEN: Soft and nontender. No hepatosplenomegaly. EXTREMITIES: No edema. Left ankle in dressing. CENTRAL NERVOUS SYSTEM: Alert and oriented x3. No focal or sensory-motor deficits. SPINE: Nontender. SKIN: No petechiae and no rash. LABORATORY DATA: White count of 6.4, hemoglobin of 11.2, hematocrit of 35, MCV of 77, and platelets of 297. Sodium is 139, potassium is 3.5. Iron is 20 and percentage saturation is 10. SPEP showed 0.7 g/dL, abnormal band in beta-2 globulin region. MEDICATIONS: Tylenol 650 mg q. 4 hours. p.r.n., Bacitracin ointment, Protonix 40 mg daily, Zosyn q. 6 hours., Ultram 50 mg t.i.d., and vancomycin IV. ASSESSMENT: 1. Monoclonal gammopathy of undetermined significance. 2. Severe back pain. 3. Iron-deficiency anemia. 4. Abnormal weight loss. PLAN: He had M-protein at 0.7 g/dL, where likely he has MGUS. Other differential diagnoses are non-Hodgkin lymphoma, multiple myeloma. Bone survey is ordered to identify if there are any lytic lesion. He is not a candidate for back MRI because of the procedures in the left hip. He has iron-deficiency anemia. We will consider IV iron, one dose can be given today, 200 mg IV, and stool occult blood. Abnormal weight loss, we will order CAT scan of the chest, abdomen and pelvis with p.o. and IV contrast to rule out any mass lesion. He will need a bone marrow aspiration biopsy for further evaluation for MGUS, which can be deferred until he is stable. I discussed at length with him about MGUS. I also discussed with him possibility of progression to myeloma is 1 in 100 per year and incidence does not go up in the time. We will continue to follow closely. Thank you Dr. Bernard for allowing us to participate in Mr. Demarco's care. Brandy Arriola MD [facility]
--- NOTE | 2017-08-27 12:59 | CP.PCM.PN ---
Subjective - Date & Time of Evaluation Date of Evaluation: 08/27/17 Time of Evaluation: 11:10 - Subjective Subjective: Back pain is better, only feels it when he stands up straight, able to walk around, no fevers overnight, no bowel or urinary incontinence. Objective - Vital Signs/Intake and Output Vital Signs (last 24 hours): Temp Pulse Resp BP Pulse Ox 98.2 F 107 H 20 130/88 99 08/26/17 16:09 08/26/17 16:09 08/26/17 16:09 08/26/17 16:09 08/26/17 16:09 Intake and Output: 08/27/17 08/27/17 06:59 18:59 Intake Total 1020 Output Total 400 Balance 620 - Medications Medications: Current Medications Acetaminophen (Tylenol 325mg Tab) 650 mg PO Q4H PRN PRN Reason: Pain, moderate (4-7) Piperacillin Sod/Tazobactam Sod (Zosyn 3.375 In Ns 100ml) 100 mls @ 200 mls/hr IVPB Q6 CARIDAD PRN Reason: Protocol Stop: 08/29/17 22:01 Last Admin: 08/27/17 05:04 Dose: 200 mls/hr Vancomycin HCl (Vancomycin 1gm) 1 gm in 250 mls @ 167 mls/hr IVPB Q12 CARIDAD PRN Reason: Protocol Last Admin: 08/26/17 21:48 Dose: 167 mls/hr Mupirocin (Bactroban Ointment) 0 gm TOP BID [facility] Last Admin: 08/26/17 17:58 Dose: Not Given Pantoprazole Sodium (Protonix Ec Tab) 40 mg PO 0600 [facility] Last Admin: 08/27/17 05:04 Dose: 40 mg Tramadol HCl (Ultram) 50 mg PO TID PRN PRN Reason: Pain, severe (8-10) Last Admin: 08/23/17 09:21 Dose: 50 mg - Labs Labs: 08/23/17 06:40 08/23/17 06:40 - Constitutional Appears: Non-toxic, No Acute Distress - Head Exam Head Exam: NORMAL INSPECTION - ENT Exam ENT Exam: Mucous Membranes Moist - Neck Exam Neck Exam: absent: Lymphadenopathy, Meningismus - Respiratory Exam Respiratory Exam: Decreased Breath Sounds - Cardiovascular Exam Cardiovascular Exam: +S1, +S2 - GI/Abdominal Exam GI & Abdominal Exam: Soft. absent: Tenderness Assessment and Plan - Assessment and Plan (Free Text) Plan: Assessment Possible L2-L3 disc space infection / discitis R/O osteomyelitis left hip arthroplasty and left hip prosthetic joint infection S/P treatment with antibiotics and surgery history of nephrolithiasis obesity with BMI 35 Plan continue Vancomycin and Zosyn day 4; blood cx are negative; ESR and CRP are both elevated; reviewed CT scan of the lumbar spine; bone scan has been done but did not show increased uptake in the area - would prefer to do MRI, but if this cannot be done, would do WBC scan and will await results May need at least 4-6 weeks of antibiotics if proven to be disc space infection awaiting Neurosurgery evaluation will continue to monitor clinically
--- NOTE | 2017-08-27 13:53 | CT ---
PROCEDURE: CT Chest, Abdomen and Pelvis with intravenous contrast HISTORY: weight loss COMPARISON: Comparison is made to the previous CT of the abdomen and pelvis dated 01/17/[address] of the chest dated 08/23/2013 TECHNIQUE: IV dose administered: 150 mL Omnipaque 350 intravenously. Axial and reformatted coronal and sagittal CT images of the chest abdomen and pelvis were obtained after IV and oral contrast administration. Radiation dose: Total exam DLP = 1378.3 mGy-cm. This CT exam was performed using one or more of the following dose reduction techniques: Automated exposure control, adjustment of the mA and/or kV according to patient size, and/or use of iterative reconstruction technique. FINDINGS: CT CHEST WITH CONTRAST: LUNGS: No evidence of pneumonia or mass lesion in the lungs. MEDIASTINUM: Unremarkable. Normal caliber aorta and pulmonary arterial trunk. No aortic dissection. Normal size heart. LYMPH NODES: Unremarkable. PLEURA: Unremarkable. No pneumothorax. No pleural fluid. BONES: Unremarkable. OTHER FINDINGS: None. CT ABDOMEN AND PELVIS: LIVER: Mild hepatomegaly is noted. GALLBLADDER AND BILE DUCTS: Unremarkable. PANCREAS: Unremarkable. No gross lesion or ductal dilatation. SPLEEN: Mild splenomegaly is noted. There are poorly defined small foci of low attenuation noted in the spleen. The possibility of infectious process is not totally excluded. ADRENALS: Unremarkable. No mass. KIDNEYS AND URETERS: Unremarkable. No hydronephrosis. No solid mass. VASCULATURE: Unremarkable. No aortic aneurysm. BOWEL: Unremarkable. No obstruction. No gross mural thickening. APPENDIX: No evidence of appendicitis. PERITONEUM: Unremarkable. No free fluid. No free air. LYMPH NODES: Mildly enlarged left iliac chain lymph nodes are noted. BLADDER: Mild circumferential urinary bladder wall thickening is also noted. REPRODUCTIVE: The prostate is heterogeneous mildly enlarged. BONES: Again seen are findings suggestive of discitis osteomyelitis at L2-L3. There is market deformity of the left hip noted associated with hardware insertion at the left femoral head. There are secondary osteoarthritic changes at the left hip. OTHER FINDINGS: None. IMPRESSION: No evidence of acute pathology in the chest. Mild splenomegaly. Scattered small foci of slightly low-attenuation noted in the spleen. Correlate clinically for infectious process including but not limited to fungus infection. Mild hepatomegaly. Re- demonstration of disc and bone destruction at L2-L3 consistent with discitis osteomyelitis. Market deformity of the left femoral neck and head.
--- NOTE | 2017-08-27 14:08 | CP.PCM.PN ---
<Elliott Castaneda - Last Filed: 08/27/17 14:05> Subjective - Date & Time of Evaluation Date of Evaluation: 08/27/17 Time of Evaluation: 14:08 - Subjective Subjective: 47 y/o male seen and evaluated at bedside with attending Dr. Marcial for chronic left lateral leg wound. Patient appears to be resting comfortably in his bed, AAOx3 and denies of any acute overnight events. Patient admits to slight pain to the ulceration site to left leg when changing the dressing. Patient denies of F/N/V/C/SOB/CP today. Objective - Vital Signs/Intake and Output Vital Signs (last 24 hours): Temp Pulse Resp BP Pulse Ox 97.4 F L 88 20 145/97 H 94 L 08/27/17 07:00 08/27/17 07:00 08/27/17 07:00 08/27/17 07:00 08/27/17 07:00 Intake and Output: 08/27/17 08/27/17 06:59 18:59 Intake Total 1020 Output Total 400 Balance 620 - Medications Medications: Current Medications Acetaminophen (Tylenol 325mg Tab) 650 mg PO Q4H PRN PRN Reason: Pain, moderate (4-7) Piperacillin Sod/Tazobactam Sod (Zosyn 3.375 In Ns 100ml) 100 mls @ 200 mls/hr IVPB Q6 CARIDAD PRN Reason: Protocol Stop: 08/29/17 22:01 Last Admin: 08/27/17 11:31 Dose: 200 mls/hr Vancomycin HCl (Vancomycin 1gm) 1 gm in 250 mls @ 167 mls/hr IVPB Q12 CARIDAD PRN Reason: Protocol Last Admin: 08/27/17 09:37 Dose: 167 mls/hr Mupirocin (Bactroban Ointment) 0 gm TOP BID [facility] Last Admin: 08/26/17 17:58 Dose: Not Given Pantoprazole Sodium (Protonix Ec Tab) 40 mg PO 0600 [facility] Last Admin: 08/27/17 05:04 Dose: 40 mg Tramadol HCl (Ultram) 50 mg PO TID PRN PRN Reason: Pain, severe (8-10) Last Admin: 08/23/17 09:21 Dose: 50 mg - Labs Labs: 08/27/17 09:15 08/27/17 09:15 - Constitutional Appears: Well, Non-toxic, No Acute Distress - Extremities Exam Additional comments: Bilateral LE exam VASC: DP/PT pulses are palpable on the right foot but non-palpable on the left foot, CREDIT CARD ASSOCIATE: < 3 sec to all digits, TG: warm to cool from proximal to distal on the right LE and cool to cool on the left LE, no pitting or non-pitting edema noted on the left LE DERM: Open wound noted to lateral aspect of left leg measuring approximately 4cm x 3.5cmx 0.3 cm noted on the distal lateral aspect of the left leg, minimal serosansuinous drainage noted on the bandage, no purulent drainage is noted, no malodor, surrounding erythema present <0.5cm margin, no tunneling, no undermining, no inter digital maceration noted b/l NEURO: Protective sensation grossly intact ORTHO: mild tenderness on palpation of the wound site, Limb length is shorter on the left compared to the right LE - Neurological Exam Neurological Exam: Alert, Awake, Oriented x3 - Psychiatric Exam Psychiatric exam: Normal Affect, Normal Mood Assessment and Plan - Assessment and Plan (Free Text) Assessment: 47 y/o male seen and evaluated at bedside for chronic infected left lateral leg wound Plan: Patient seen and evaluated at bedside Labs, vitals and charts reviewed: Afebrile WBC @ 6.4 today Cultures final; Staph Aureus Dressing applied using Bactroban, optifoam, SHOAIB bandage Arterial duplex shows normal ALBINA/PVR No evidence of acute osseous events seen on bone scan Patient is currently on abx - IV abx as per ID - ID on board Podiatry will continue to follow patient while in house <Myrna Marcial - Last Filed: 08/27/17 15:30> Objective - Vital Signs/Intake and Output Vital Signs (last 24 hours): Temp Pulse Resp BP Pulse Ox 97.4 F L 88 20 145/97 H 94 L 08/27/17 07:00 08/27/17 07:00 08/27/17 07:00 08/27/17 07:00 08/27/17 07:00 Intake and Output: 08/27/17 08/27/17 06:59 18:59 Intake Total 1020 480 Output Total 400 175 Balance 620 305 - Medications Medications: Current Medications Acetaminophen (Tylenol 325mg Tab) 650 mg PO Q4H PRN PRN Reason: Pain, moderate (4-7) Piperacillin Sod/Tazobactam Sod (Zosyn 3.375 In Ns 100ml) 100 mls @ 200 mls/hr IVPB Q6 CARIDAD PRN Reason: Protocol Stop: 08/29/17 22:01 Last Admin: 08/27/17 11:31 Dose: 200 mls/hr Vancomycin HCl (Vancomycin 1gm) 1 gm in 250 mls @ 167 mls/hr IVPB Q12 CARIDAD PRN Reason: Protocol Last Admin: 08/27/17 09:37 Dose: 167 mls/hr Mupirocin (Bactroban Ointment) 0 gm TOP BID [facility] Last Admin: 08/26/17 17:58 Dose: Not Given Pantoprazole Sodium (Protonix Ec Tab) 40 mg PO 0600 [facility] Last Admin: 08/27/17 05:04 Dose: 40 mg Tramadol HCl (Ultram) 50 mg PO TID PRN PRN Reason: Pain, severe (8-10) Last Admin: 08/23/17 09:21 Dose: 50 mg - Labs Labs: 08/27/17 09:15 08/27/17 09:15 Attending/Attestation - Attestation I have personally seen and examined this patient.: Yes I have fully participated in the care of the patient.: Yes I have reviewed all pertinent clinical information, including history, physical exam and plan: Yes
[2017-08-27] MEDS ORDERED: Potassium Chloride 20 mEq ER Tab PO ONE (15:12)
--- NOTE | 2017-08-28 01:51 | CON ---
DATE: 08/27/2017 REASON FOR CONSULTATION: Possible discitis/osteomyelitis, lumbar spine. HISTORY OF PRESENT ILLNESS: The patient is a 47-year-old gentleman who states he had back pain for over the past several weeks. He had been seen in the emergency room as well as by chiropractor. He was sent for a CAT scan, which reportedly showed evidence of a possible disc space infection between L2 and L3. He is admitted here at this time for further workup. He denies any fevers or chills. No radicular complaints. No loss of bowel or bladder control. He has a history of a crush injury to his left hip as a 11-year-old, which required a hip pinning done in [place] at [facility]. He had an infection several years ago and had an MRI at that time after his treatment,but has had no recent complaints referable to the left hip. He does have an open wound on his left lower leg, which he states has probably been there for a year or so. He has no other systemic complaints. PAST MEDICAL HISTORY: Not significant as per the patient. MEDICATIONS: His medications are listed on the chart. ALLERGIES: HE IS ALLERGIC TO MEROPENEM AND THAT HE GETS A RASH WELL IBUPROFEN AND THAT HE GETS THE "CHILLS." PAST SURGICAL HISTORY: Significant as mentioned above, again he has pinning of the hip, not a replacement. PHYSICAL EXAMINATION On examination, no significant tenderness. Neurologically, he is intact in both lower extremities. I did not take down his dressing to examine his open wound. A CAT scan was done today of his abdomen and pelvis. Sagittal cuts clearly show endplate destruction in the inferior endplate of L2 and superior endplate of L3. No obvious significant retropulsions or canal, but it is very difficult to evaluate on this study. Evidence of previous fusion of his left hip is present as well. I have ordered an MRI to be done of the lumbar spine because I think this will give us a better idea of any collections in the area, epidural collections, etc. He is ambulatory with only minimal complaints of pain. He just states that after he has been up for a little bit,his back gets "tight.". We will review the MRI once it has been done, but at this point, it would seem to be most likely that whatever bacteria present in his open wound in the left leg are responsible for the spinal infection as he has no other complaints whatsoever. Obviously, he then will require a 6-8 weeks treatment for whatever grows out of the wound culture from his leg. He could have a brace if needed, but again he seems to be fairly ambulatory now without one. I explained the natural history of the spinal infection so that if they treat with appropriate antibiotics, they tend to fuse themselves overtime and stabilize themselves without any operative intervention being required. We will see him again after the MRI has been completed and proceed accordingly. Thank you for allowing us to participate in the care of your patient. Bonilla Daniel MD
[2017-08-28] MEDS: Piperacillin/Tazobact 3.375 gm 100 ML IVPB SCH ×3 (06:49→18:30)
[2017-08-28] MEDS: Pantoprazole 40 mg EC Tab PO SCH (06:50)
[2017-08-28 07:18] LABS: BLOOD UREA NITROGEN 11 mg/dL (7-21); CALCIUM 9.3 mg/dL (8.4-10.5); CARBON DIOXIDE 26 mmol/L (21-33); CHLORIDE 103 mmol/L (98-107); GFR AFRICAN-AMERICAN > 60; GLUCOSE,RANDOM 94 mg/dL (70-110); POTASSIUM 3.6 mmol/L (3.6-5.0); SODIUM 138 mmol/L (132-148)
--- NOTE | 2017-08-28 09:38 | MRI ---
PROCEDURE: MR LUMBAR SPINE WITHOUT CONTRAST HISTORY: spinal eval COMPARISON: None available. TECHNIQUE: Multiecho multiplanar sequences were performed through the lumbar spine without the use of intravenous contrast. FINDINGS: Normal lumbar lordosis. Vertebral body heights are preserved. Marrow signal unremarkable. Conus medullaris unremarkable at the level of T12 Paraspinal soft tissues are unremarkable. T12-L1: No disc herniation, spinal canal stenosis or neural foraminal narrowing. L1-2: No disc herniation, spinal canal stenosis or neural foraminal narrowing. L2-3: There is disc space infection and osteomyelitis at this level. There is marrow edema throughout the L2 and L3 vertebral bodies. There is destruction of the disc and irregularity of the vertebral endplates. Paravertebral inflammatory changes are seen. There is also extension into the epidural space on the right. These findings are best seen on axial series 8 images 16 through 19. L3-4: No disc herniation, spinal canal stenosis or neural foraminal narrowing. L4-5: No disc herniation, spinal canal stenosis or neural foraminal narrowing. L5-S1: No disc herniation, spinal canal stenosis or neural foraminal narrowing. OTHER FINDINGS: None. IMPRESSION: Severe disc space infection at L2-3 with paravertebral and epidural inflammation. Diffuse marrow edema in the L2 and L3 vertebral bodies consistent with osteomyelitis.
--- NOTE | 2017-08-28 09:56 | RAD ---
PROCEDURE: BONE SURVEY HISTORY: mgus COMPARISON: None. TECHNIQUE: Multiple anterior views of the thoracolumbar spine chest pelvis than proximal bilateral extremities have been performed as well as lateral view of the skull. FINDINGS: No destructive bony lesions appreciated throughout the exam with the exception of left hip joint which is deformed status post arthrodesis with multiple compression screws transfixing left hip joint at the level of the left femoral head. The most inferior the 3 screws is fractured with the distal segment remaining in the deep medial inferior left acetabulum. Prominent sclerotic bone is appreciated IMPRESSION: No definite suspicious destructive bony lesion appreciated throughout the skeletal survey. Prominent sclerotic deformity is appreciated at left hip joint status post left hip arthrodesis.
--- NOTE | 2017-08-28 10:03 | PN ---
DATE: 08/28/2017 SUBJECTIVE: He is comfortable in bed, in no acute distress. Pain is controlled with current medication. He underwent CAT scan of the chest, abdomen and pelvis which did not show any mass lesion. CAT scan was done because he reported 20-pound weight loss in last few weeks. He was evaluated by neurosurgery. MRI was done. He also had a bone survey done because of MGUS. Results are still pending. REVIEW OF SYSTEMS: As per HPI. Rest of the 12-point review of system reviewed negative. PHYSICAL EXAMINATION GENERAL: Comfortable in bed, in no acute distress. VITAL SIGNS: Temperature 98.7, heart rate 80 per minute, blood pressure 110/70, respiratory rate 18 per minute, oxygen saturation 98% room air. HEENT: Normal. CHEST: Air entry present, equal bilaterally. No added sound. CARDIOVASCULAR: S1, S2 normal. No murmur. No gallop. ABDOMEN: Soft, nontender. No hepatosplenomegaly. CENTRAL NERVOUS SYSTEM: Alert and oriented x3. No focal or sensory motor deficit. LABORATORY DATA: White count 6.4, hemoglobin 11.2, hematocrit 35.1, MCV 77, platelet 297, sodium 138, potassium 3.6, iron 20, percent saturation 10. ASSESSMENT: 1. Monoclonal gammopathies of undetermined significance. 2. Iron-deficiency anemia. 3. Diskitis. 4. Abnormal weight loss. PLAN: Serum protein electrophoresis is consistent with MGUS. Skeletal survey is done today to look for lytic lesions. M-protein is in lambda region. He has diskitis evaluated by neurosurgery. MRI done, report awaited. Iron deficiency anemia. We will give 1 dose of IV iron and continue IV iron as outpatient. We will need colonoscopy, EGD for evaluation of iron-deficiency anemia which can be done as an outpatient when he is stable and pain free. Discussed all of the above with the patient. Thank you Dr. Bernard for allowing us to participate in Mr. Morales's care. Brandy Arriola MD
[2017-08-28] MEDS: Vancomycin 1gm in NS 250ml 1 GM/250 ML BAG IVPB SCH ×2 (13:01→22:20)
--- NOTE | 2017-08-28 13:07 | PN ---
DATE: 08/28/2017 SUBJECTIVE: The patient is in bed, in no acute distress, was seen early this morning. His back pain is somewhat improved. He states no fevers and chills. OBJECTIVE: VITAL SIGNS: Temperature is 97, blood pressure is 139/90, respiratory rate of 16. HEENT: Unremarkable. NECK: Supple. LUNGS: Decreased breath sounds. HEART: Normal S1, S2. ABDOMEN: Soft, nontender. No rebound or guarding. No masses. LABORATORY EXAMINATION: Reveals a white count of 6.4, hemoglobin of 11, and platelets of 297. Chemistries reveals a BUN of 11, creatinine of 1.0. Urinalysis is noted and microbiology is noted. The patient's culture from the left leg is staph aureus, which is sensitive staph aureus. Blood cultures are negative. ASSESSMENT AND PLAN: A 47-year-old male with a possible L2-L3 disc space infection, discitis versus osteomyelitis. The patient is scheduled for MRI of the spine, should have Dr. Prem Palmer review the MRI and consider a CT scan directed aspiration of the bone and the cultures to rule out it etiology. This particular patient has had Escherichia coli bacteremia in the past secondary to Escherichia coli urinary tract infection with a history of peripheral vascular disease, peripheral edema and arthritis, who has had left leg cellulitis, acute kidney injury in the past and he has had strep cellulitis of the lower extremity in the past. The patient is known to me with previous admissions. We will discussed with PMD. Po Quinones MD
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
--- NOTE | 2017-08-28 16:41 | CP.PCM.PN ---
<CastanedaJacquelineamafloyd - Last Filed: 08/28/17 16:38> Subjective - Date & Time of Evaluation Date of Evaluation: 08/28/17 Time of Evaluation: 16:38 - Subjective Subjective: 47 y/o male seen and evaluated at bedside with attending Dr. Marcial for chronic left lateral leg wound. Patient appears to be resting comfortably in his bed, AAOx3 and denies of any acute overnight events. Patient denies of any pain to the ulceration site to left leg when changing the dressing. Patient states that he had a bone scan done today. Patient denies of F/N/V/C/SOB/CP today. Objective - Vital Signs/Intake and Output Vital Signs (last 24 hours): Temp Pulse Resp BP Pulse Ox 97.5 F L 82 20 137/76 98 08/28/17 16:08 08/28/17 16:08 08/28/17 16:08 08/28/17 16:08 08/28/17 16:08 Intake and Output: 08/28/17 08/28/17 06:59 18:59 Intake Total 780 420 Output Total 500 Balance 780 -80 - Medications Medications: Current Medications Acetaminophen (Tylenol 325mg Tab) 650 mg PO Q4H PRN PRN Reason: Pain, moderate (4-7) Piperacillin Sod/Tazobactam Sod (Zosyn 3.375 In Ns 100ml) 100 mls @ 200 mls/hr IVPB Q6 [facility] PRN Reason: Protocol Stop: 08/29/17 22:01 Last Admin: 08/28/17 12:18 Dose: 200 mls/hr Vancomycin HCl (Vancomycin 1gm) 1 gm in 250 mls @ 167 mls/hr IVPB Q12 [facility] PRN Reason: Protocol Last Admin: 08/28/17 13:01 Dose: 167 mls/hr Mupirocin (Bactroban Ointment) 0 gm TOP BID [facility] Last Admin: 08/28/17 12:13 Dose: Not Given Pantoprazole Sodium (Protonix Ec Tab) 40 mg PO 0600 CARIDAD Last Admin: 08/28/17 06:50 Dose: 40 mg Tramadol HCl (Ultram) 50 mg PO TID PRN PRN Reason: Pain, severe (8-10) Last Admin: 08/28/17 01:11 Dose: 50 mg - Labs Labs: 08/27/17 09:15 08/28/17 06:30 - Constitutional Appears: Well, Non-toxic, No Acute Distress - Extremities Exam Additional comments: Bilateral LE exam VASC: DP/PT pulses are palpable on the right foot but non-palpable on the left foot, LABOR ECONOMICS PROFESSOR: < 3 sec to all digits, TG: warm to cool from proximal to distal on the right LE and cool to cool on the left LE, no pitting or non-pitting edema noted on the left LE DERM: Open wound noted to lateral aspect of left leg measuring approximately 4cm x 3.5cmx 0.3 cm noted on the distal lateral aspect of the left leg, minimal serosansuinous drainage noted on the bandage, no purulent drainage is noted, no malodor, surrounding erythema present <0.5cm margin, no tunneling, no undermining, no inter digital maceration noted b/l NEURO: Protective sensation grossly intact ORTHO: mild tenderness on palpation of the wound site, Limb length is shorter on the left compared to the right LE - Neurological Exam Neurological Exam: Alert, Awake, Oriented x3 - Psychiatric Exam Psychiatric exam: Normal Affect, Normal Mood Assessment and Plan - Assessment and Plan (Free Text) Assessment: 47 y/o male seen and evaluated at bedside for chronic infected left lateral leg wound Plan: Patient seen and evaluated at bedside Labs, vitals and charts reviewed: Afebrile WBC @ 6.4 as of yesterday Cultures final; Staph Aureus Wound cleaned with normal saline Wound bed was curetted to remove any fibrotic tissue Dressing applied using Bactroban, optifoam, SHOAIB bandage Arterial duplex shows normal ALBINA/PVR No evidence of acute osseous events seen on bone scan Patient is currently on abx - IV abx as per ID - ID on board Podiatry will continue to follow patient while in house <Myrna Marcial - Last Filed: 09/03/17 14:45> Objective - Vital Signs/Intake and Output Vital Signs (last 24 hours): Temp Pulse Resp BP Pulse Ox 97.5 F L 78 18 105/67 98 09/03/17 07:25 09/03/17 07:25 09/03/17 07:25 09/03/17 07:25 09/03/17 07:25 Intake and Output: 09/03/17 09/03/17 06:59 18:59 Intake Total 960 Balance 960 - Medications Medications: Current Medications Acetaminophen (Tylenol 325mg Tab) 650 mg PO Q4H PRN PRN Reason: Pain, moderate (4-7) Piperacillin Sod/Tazobactam Sod (Zosyn 3.375 In Ns 100ml) 100 mls @ 200 mls/hr IVPB Q6 CARID[facility] PRN Reason: Protocol Stop: 09/05/17 18:01 Last Admin: 09/03/17 11:51 Dose: 200 mls/hr Vancomycin HCl (Vancomycin 1gm) 1 gm in 250 mls @ 167 mls/hr IVPB Q12H [facility] PRN Reason: Protocol Last Admin: 09/03/17 13:25 Dose: 167 mls/hr Vancomycin HCl (Vancomycin 1gm) 1 gm in 250 mls @ 167 mls/hr IVPB ONCE ONE PRN Reason: Protocol Stop: 09/03/17 20:29 Mupirocin (Bactroban Ointment) 0 gm TOP BID CARIDAD Last Admin: 09/03/17 10:12 Dose: 1 applic Ondansetron HCl (Zofran Inj) 4 mg IVP Q6H PRN PRN Reason: Nausea/Vomiting Pantoprazole Sodium (Protonix Ec Tab) 40 mg PO 0600 [facility]ID[facility] Last Admin: 09/03/17 05:20 Dose: 40 mg Tramadol HCl (Ultram) 50 mg PO TID PRN PRN Reason: Pain, severe (8-10) Last Admin: 08/28/17 01:11 Dose: 50 mg - Labs Labs: 08/27/17 09:15 08/28/17 06:30 PT 14.5 SECONDS (9.4-12.5) H 08/29/17 06:05 INR 1.31 (0.93-1.08) H 08/29/17 06:05 APTT 32.0 Seconds (25.1-36.5) 08/29/17 06:05 Attending/Attestation - Attestation I have personally seen and examined this patient.: Yes I have fully participated in the care of the patient.: Yes I have reviewed all pertinent clinical information, including history, physical exam and plan: Yes
[2017-08-29] MEDS: Pantoprazole 40 mg EC Tab PO SCH (06:01)
[2017-08-29 06:36] LABS: INR 1.31 (0.93-1.08)
--- NOTE | 2017-08-29 08:19 | PN ---
DATE: 08/28/2017 SUBJECTIVE: Mr. Morales had his MRI done and it was reviewed by one of my partners. It shows the discitis/osteomyelitis at L2-3. There is some mild extension at the epidural space and neural foramina, but Mr. Morales again has no complaints of leg pain. Neurologically, he is intact. Therefore, as in my recent dictation, our recommendation is to proceed with intravenous antibiotics as determined by Infectious Disease. Most likely, the wound on his leg is the source of the bacterial feeding and treatment would be directed at whatever grew out from that wound culture. Certainly, if his neurologic status changes then please recall and we will be happy to see him again. The MRI probably will not show signs of improvement for at least 4-6 months, so again unless his neurologic status changes, there is no need for studies earlier than that timeframe. Bonilla Daniel MD
[2017-08-29] MEDS ORDERED: Vancomycin 1gm in NS 250ml 250 ML IVPB SCH (12:30)
[2017-08-29] MEDS: Vancomycin 1gm in NS 250ml 1 GM/250 ML BAG IVPB SCH (13:47)
--- NOTE | 2017-08-29 14:02 | NM ---
PROCEDURE: Ceretec labeled white blood cell study HISTORY: WBC scan to rule out lumbar disc space infection COMPARISON: 08/28/2017 MRI lumbar spine. Summary of findings on the comparison examination: Severe disc space infection at L2-3 with paravertebral and epidural inflammation. Diffuse marrow edema L2 and L3 vertebral bodies consistent with osteomyelitis. TECHNIQUE: 18.0 mCi technetium 99 M Ceretec labeled white blood cells administered intravenously. Images obtained at 2, 3 in 24 hours. Hours. FINDINGS: Photon deficient findings at L2 and L3 are consistent with acute osteomyelitis. IMPRESSION: Positive Ceretec labeled white blood cell study for acute osteomyelitis L2 and L3 vertebral bodies.
--- NOTE | 2017-08-29 14:12 | CP.PCM.PN ---
<Elliott Castaneda - Last Filed: 08/29/17 14:09> Subjective - Date & Time of Evaluation Date of Evaluation: 08/29/17 Time of Evaluation: 14:09 - Subjective Subjective: 47 y/o male seen and evaluated at bedside for chronic left lateral leg wound. Patient appears to be resting comfortably in his bed, AAOx3 and denies of any acute overnight events. Patient denies of any pain to the ulceration site to left leg when changing the dressing. Patient denies of F/N/V/C/SOB/CP today. Objective - Vital Signs/Intake and Output Vital Signs (last 24 hours): Temp Pulse Resp BP Pulse Ox 98.1 F 83 20 129/87 99 08/29/17 07:30 08/29/17 07:30 08/29/17 07:30 08/29/17 07:30 08/29/17 07:30 Intake and Output: 08/29/17 08/29/17 06:59 18:59 Intake Total 780 Output Total 800 Balance -20 - Medications Medications: Current Medications Acetaminophen (Tylenol 325mg Tab) 650 mg PO Q4H PRN PRN Reason: Pain, moderate (4-7) Piperacillin Sod/Tazobactam Sod (Zosyn 3.375 In Ns 100ml) 100 mls @ 200 mls/hr IVPB Q6 [facility] PRN Reason: Protocol Stop: 09/05/17 18:01 Vancomycin HCl (Vancomycin 1gm) 1 gm in 250 mls @ 167 mls/hr IVPB Q12H [facility] PRN Reason: Protocol Last Admin: 08/29/17 13:47 Dose: 167 mls/hr Mupirocin (Bactroban Ointment) 0 gm TOP BID [facility] Last Admin: 08/28/17 12:13 Dose: Not Given Pantoprazole Sodium (Protonix Ec Tab) 40 mg PO 0600 CARIDAD Last Admin: 08/29/17 06:01 Dose: 40 mg Tramadol HCl (Ultram) 50 mg PO TID PRN PRN Reason: Pain, severe (8-10) Last Admin: 08/28/17 01:11 Dose: 50 mg - Labs Labs: 08/27/17 09:15 08/28/17 06:30 PT 14.5 SECONDS (9.4-12.5) H 08/29/17 06:05 INR 1.31 (0.93-1.08) H 08/29/17 06:05 APTT 32.0 Seconds (25.1-36.5) 08/29/17 06:05 - Constitutional Appears: Well, Non-toxic, No Acute Distress - Extremities Exam Additional comments: Bilateral LE exam VASC: DP/PT pulses are palpable on the right foot but non-palpable on the left foot, SCHOOL COORDINATOR: < 3 sec to all digits, TG: warm to cool from proximal to distal on the right LE and cool to cool on the left LE, no pitting or non-pitting edema noted on the left LE DERM: Open wound noted to lateral aspect of left leg measuring approximately 4cm x 3.5cmx 0.3 cm noted on the distal lateral aspect of the left leg, minimal serosansuinous drainage noted on the bandage, no purulent drainage is noted, no malodor, surrounding erythema present <0.5cm margin, no tunneling, no undermining, no inter digital maceration noted b/l NEURO: Protective sensation grossly intact ORTHO: mild tenderness on palpation of the wound site, Limb length is shorter on the left compared to the right LE - Neurological Exam Neurological Exam: Alert, Awake, Oriented x3 - Psychiatric Exam Psychiatric exam: Normal Affect, Normal Mood Assessment and Plan - Assessment and Plan (Free Text) Assessment: 47 y/o male seen and evaluated at bedside for chronic infected left lateral leg wound Plan: Patient seen and evaluated at bedside Patient discussed in details with attending Dr. Marcial Labs, vitals and charts reviewed: Afebrile WBC @ 6.4 as of 08/27 Cultures final; Staph Aureus Wound cleaned with normal saline Dressing applied using Bactroban, optifoam, SHOAIB bandage Arterial duplex shows normal ALBINA/PVR No evidence of acute osseous events seen on bone scan Patient is currently on abx - IV abx as per ID - ID on board Podiatry will continue to follow patient while in house <Myrna Marcial - Last Filed: 09/03/17 14:47> Objective - Vital Signs/Intake and Output Vital Signs (last 24 hours): Temp Pulse Resp BP Pulse Ox 97.5 F L 78 18 105/67 98 09/03/17 07:25 09/03/17 07:25 09/03/17 07:25 09/03/17 07:25 09/03/17 07:25 Intake and Output: 09/03/17 09/03/17 06:59 18:59 Intake Total 960 Balance 960 - Medications Medications: Current Medications Acetaminophen (Tylenol 325mg Tab) 650 mg PO Q4H PRN PRN Reason: Pain, moderate (4-7) Piperacillin Sod/Tazobactam Sod (Zosyn 3.375 In Ns 100ml) 100 mls @ 200 mls/hr IVPB Q6 CARIDAD PRN Reason: Protocol Stop: 09/05/17 18:01 Last Admin: 09/03/17 11:51 Dose: 200 mls/hr Vancomycin HCl (Vancomycin 1gm) 1 gm in 250 mls @ 167 mls/hr IVPB Q12H [facility] PRN Reason: Protocol Last Admin: 09/03/17 13:25 Dose: 167 mls/hr Vancomycin HCl (Vancomycin 1gm) 1 gm in 250 mls @ 167 mls/hr IVPB ONCE ONE PRN Reason: Protocol Stop: 09/03/17 20:29 Mupirocin (Bactroban Ointment) 0 gm TOP BID [facility] Last Admin: 09/03/17 10:12 Dose: 1 applic Ondansetron HCl (Zofran Inj) 4 mg IVP Q6H PRN PRN Reason: Nausea/Vomiting Pantoprazole Sodium (Protonix Ec Tab) 40 mg PO 0600 CARIDAD Last Admin: 09/03/17 05:20 Dose: 40 mg Tramadol HCl (Ultram) 50 mg PO TID PRN PRN Reason: Pain, severe (8-10) Last Admin: 08/28/17 01:11 Dose: 50 mg - Labs Labs: 08/27/17 09:15 08/28/17 06:30 PT 14.5 SECONDS (9.4-12.5) H 08/29/17 06:05 INR 1.31 (0.93-1.08) H 08/29/17 06:05 APTT 32.0 Seconds (25.1-36.5) 08/29/17 06:05 Attending/Attestation - Attestation I have personally seen and examined this patient.: Yes I have fully participated in the care of the patient.: Yes I have reviewed all pertinent clinical information, including history, physical exam and plan: Yes
[2017-08-29] MEDS ORDERED: Midazolam 2 MG/2 ML VIAL ONE (15:56)
--- NOTE | 2017-08-29 17:17 | CT ---
PROCEDURE: CT guided L2-3 disc space aspiration HISTORY: L2-3 discitis/osteomyelitis. Aspirate for organism. PHYSICIAN(S): Prem Palmer MD. TECHNIQUE: The relative risks and indications of the procedure were explained to the patient and consent obtained. The patient was placed prone on the CT scanner and preliminary images through the L2-3 obtained. Conscious sedation and monitoring were provided throughout the procedure by a nurse. Destructive changes consistent with discitis/osteomyelitis are noted at the L2-3 level.. A right posterior paraspinal approach was selected and the area prepped and draped in the usual sterile fashion. 1% Xylocaine was used to anesthetize the skin and soft tissues. A 18 gauge needle was advanced into the L2-3 disc space. Position was confirmed with CT. Aspiration obtained 2-3 cc of bloody fluid. Specimen was sent for culture. IMPRESSION: 1. CT-guided L2-3 disc aspiration as described above.
[2017-08-29] MEDS: Piperacillin/Tazobact 3.375 gm 100 ML IVPB SCH (18:33)
--- NOTE | 2017-08-29 18:47 | CP.PCM.PN ---
Subjective - Date & Time of Evaluation Date of Evaluation: 08/29/17 Time of Evaluation: 10:10 - Subjective Subjective: Patient is for CT aspiration of the L2-L3 area, no fevers overnight. Objective - Vital Signs/Intake and Output Vital Signs (last 24 hours): Temp Pulse Resp BP Pulse Ox 97.8 F 79 20 123/81 97 08/29/17 17:30 08/29/17 17:30 08/29/17 17:30 08/29/17 17:30 08/29/17 17:30 Intake and Output: 08/29/17 08/29/17 06:59 18:59 Intake Total 780 530 Output Total 800 Balance -20 530 - Medications Medications: Current Medications Acetaminophen (Tylenol 325mg Tab) 650 mg PO Q4H PRN PRN Reason: Pain, moderate (4-7) Piperacillin Sod/Tazobactam Sod (Zosyn 3.375 In Ns 100ml) 100 mls @ 200 mls/hr IVPB Q6 CARIDAD PRN Reason: Protocol Stop: 09/05/17 18:01 Last Admin: 08/29/17 18:33 Dose: 200 mls/hr Vancomycin HCl (Vancomycin 1gm) 1 gm in 250 mls @ 167 mls/hr IVPB Q12H [facility]AD PRN Reason: Protocol Last Admin: 08/29/17 13:47 Dose: 167 mls/hr Sodium Chloride (Sodium Chloride 0.45%) 1,000 mls @ 80 mls/hr IV .[id number] CARIDAD Stop: 08/30/17 08:00 Mupirocin (Bactroban Ointment) 0 gm TOP BID [facility] Last Admin: 08/29/17 18:34 Dose: Not Given Ondansetron HCl (Zofran Inj) 4 mg IVP Q6H PRN PRN Reason: Nausea/Vomiting Pantoprazole Sodium (Protonix Ec Tab) 40 mg PO 0600 CARIDAD Last Admin: 08/29/17 06:01 Dose: 40 mg Tramadol HCl (Ultram) 50 mg PO TID PRN PRN Reason: Pain, severe (8-10) Last Admin: 08/28/17 01:11 Dose: 50 mg - Labs Labs: 08/27/17 09:15 08/28/17 06:30 PT 14.5 SECONDS (9.4-12.5) H 08/29/17 06:05 INR 1.31 (0.93-1.08) H 08/29/17 06:05 APTT 32.0 Seconds (25.1-36.5) 08/29/17 06:05 - Constitutional Appears: Non-toxic - Head Exam Head Exam: NORMAL INSPECTION - Respiratory Exam Respiratory Exam: Decreased Breath Sounds - Cardiovascular Exam Cardiovascular Exam: +S1, +S2 - GI/Abdominal Exam GI & Abdominal Exam: Soft. 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
[2017-08-29] MEDS: Sodium Chloride 0.45% 1,000 ML IV SCH (21:10)
[2017-08-30] MEDS: Piperacillin/Tazobact 3.375 gm 100 ML IVPB SCH ×5 (00:09→23:20)
[2017-08-30] MEDS: Vancomycin 1gm in NS 250ml 1 GM/250 ML BAG IVPB SCH ×2 (00:09→13:30)
[2017-08-30] MEDS: Sodium Chloride 0.45% 1,000 ML IV SCH ×2 (05:45→05:50)
[2017-08-30] MEDS: Pantoprazole 40 mg EC Tab PO SCH (05:50)
[2017-08-30 07:00] LABS: KAPPA/LAMBDA FREE RATIO 1.21 (0.26-1.65)
--- NOTE | 2017-08-30 08:40 | CP.PCM.PN ---
Subjective - Date & Time of Evaluation Date of Evaluation: 08/30/17 Time of Evaluation: 07:45 - Subjective Subjective: Patient is seen this morning. He says back pain is improving. He went for biopsy yesterday. Objective - Vital Signs/Intake and Output Vital Signs (last 24 hours): Temp Pulse Resp BP Pulse Ox 97.8 F 78 18 106/65 97 08/30/17 07:30 08/30/17 07:30 08/30/17 07:30 08/30/17 07:30 08/30/17 07:30 Intake and Output: 08/30/17 08/30/17 06:59 18:59 Intake Total 960 Output Total 1000 Balance -40 - Medications Medications: Current Medications Acetaminophen (Tylenol 325mg Tab) 650 mg PO Q4H PRN PRN Reason: Pain, moderate (4-7) Piperacillin Sod/Tazobactam Sod (Zosyn 3.375 In Ns 100ml) 100 mls @ 200 mls/hr IVPB Q6 CARIDAD PRN Reason: Protocol Stop: 09/05/17 18:01 Last Admin: 08/30/17 05:50 Dose: 200 mls/hr Vancomycin HCl (Vancomycin 1gm) 1 gm in 250 mls @ 167 mls/hr IVPB Q12H CARIDAD PRN Reason: Protocol Last Admin: 08/30/17 00:09 Dose: 167 mls/hr Mupirocin (Bactroban Ointment) 0 gm TOP BID ON LICENSE OF [facility] Last Admin: 08/29/17 18:34 Dose: Not Given Ondansetron HCl (Zofran Inj) 4 mg IVP Q6H PRN PRN Reason: Nausea/Vomiting Pantoprazole Sodium (Protonix Ec Tab) 40 mg PO 0600 ON LICENSE OF [facility] Last Admin: 08/30/17 05:50 Dose: 40 mg Tramadol HCl (Ultram) 50 mg PO TID PRN PRN Reason: Pain, severe (8-10) Last Admin: 08/28/17 01:11 Dose: 50 mg - Labs Labs: 08/27/17 09:15 08/28/17 06:30 PT 14.5 SECONDS (9.4-12.5) H 08/29/17 06:05 INR 1.31 (0.93-1.08) H 08/29/17 06:05 APTT 32.0 Seconds (25.1-36.5) 08/29/17 06:05 - Constitutional Appears: No Acute Distress - Head Exam Head Exam: ATRAUMATIC, NORMOCEPHALIC - Respiratory Exam Respiratory Exam: Clear to Ausculation Bilateral, NORMAL BREATHING PATTERN - Cardiovascular Exam Cardiovascular Exam: +S1, +S2 - GI/Abdominal Exam GI & Abdominal Exam: Soft, Normal Bowel Sounds. absent: Tenderness - Extremities Exam Additional comments: left ankle wound - Neurological Exam Neurological Exam: Alert, Awake, Oriented x3 Assessment and Plan - Assessment and Plan (Free Text) Assessment: Osteomyelitis L2-L3 H/O left hip arthroplasty and left hip infection 2 years ago Anemia Plan: MRI, CT scan and WBC scan positive for L2-L3 osteomyelitis. Bone scan was negative. Patient underwent aspiration biopsy of L2-L3 yesterday. Fluid sent for culture. Awaiting culture results so antibiotic regimen can be finalized. PICC line ordered as patient will need watermelon inspector antibiotics. continue antibiotics as per ID. Patient has been advised to have colonoscopy as outpatient.
--- NOTE | 2017-08-30 10:21 | PN ---
DATE: 08/30/2017 SUBJECTIVE: The patient is in bed in no acute distress, was seen early this morning in 564, bed 2. OBJECTIVE: VITAL SIGNS: Temperature of 97, blood pressure is 106/60, and respiratory rate of 18. HEENT: Unremarkable. NECK: Supple. LUNGS: Decreased breath sounds. HEART: Normal S1 and S2. ABDOMEN: Soft and nontender. LABORATORY DATA: Reveals the patient's white count is 6.4, hemoglobin of 11, and platelets of 297. Coagulation is noted. Chemistries revealed BUN of 11 and creatinine of 1.0. Urinalysis is noted and immunology is negative. Microbiology reveals Staph aureus from the leg. Review of orders reveals the patient to be on vancomycin and Zosyn. Dr. Bernard's note is reviewed from this morning. ASSESSMENT AND PLAN: This is a 47-year-old male with L2-L3 disc space infection, discitis, and osteomyelitis, status post IR current biopsy and aspiration, awaiting for pathology and cultures and the patient with left hip arthroplasty and left hip prosthetic joint infection and history of nephrolithiasis and obesity with body mass index of 35, on vancomycin and Zosyn. We will need prolonged antibiotics and a PICC line placement and we will need CBC, SMA-18, sed rate, C-reactive and antibiotics will be decided based on the culture results of Dr. Prem Palmer aspirate. We will follow closely with you. The patient does have Staphylococcus aureus from the left leg. He has had Escherichia coli in the blood and urine in the past in 2012. He has had cellulitis of the leg in the past. We will follow with you. Po Quinones MD
--- NOTE | 2017-08-30 10:56 | CP.PCM.PN ---
<Elliott Castaneda - Last Filed: 08/30/17 10:53> Subjective - Date & Time of Evaluation Date of Evaluation: 08/30/17 Time of Evaluation: 10:53 - Subjective Subjective: 47 y/o male seen and evaluated at bedside for chronic left lateral leg wound. Patient appears to be resting comfortably in his bed, AAOx3 and denies of any acute overnight events. Patient denies of any pain to the ulceration site to left leg when changing the dressing. Patient denies of F/N/V/C/SOB/CP today. Objective - Vital Signs/Intake and Output Vital Signs (last 24 hours): Temp Pulse Resp BP Pulse Ox 97.8 F 78 18 106/65 97 08/30/17 07:30 08/30/17 07:30 08/30/17 07:30 08/30/17 07:30 08/30/17 07:30 Intake and Output: 08/30/17 08/30/17 06:59 18:59 Intake Total 960 Output Total 1000 Balance -40 - Medications Medications: Current Medications Acetaminophen (Tylenol 325mg Tab) 650 mg PO Q4H PRN PRN Reason: Pain, moderate (4-7) Piperacillin Sod/Tazobactam Sod (Zosyn 3.375 In Ns 100ml) 100 mls @ 200 mls/hr IVPB Q6 [facility] PRN Reason: Protocol Stop: 09/05/17 18:01 Last Admin: 08/30/17 05:50 Dose: 200 mls/hr Vancomycin HCl (Vancomycin 1gm) 1 gm in 250 mls @ 167 mls/hr IVPB Q12H [facility] PRN Reason: Protocol Last Admin: 08/30/17 00:09 Dose: 167 mls/hr Mupirocin (Bactroban Ointment) 0 gm TOP BID [facility] Last Admin: 08/29/17 18:34 Dose: Not Given Ondansetron HCl (Zofran Inj) 4 mg IVP Q6H PRN PRN Reason: Nausea/Vomiting Pantoprazole Sodium (Protonix Ec Tab) 40 mg PO 0600 [facility] Last Admin: 08/30/17 05:50 Dose: 40 mg Tramadol HCl (Ultram) 50 mg PO TID PRN PRN Reason: Pain, severe (8-10) Last Admin: 08/28/17 01:11 Dose: 50 mg - Labs Labs: 08/27/17 09:15 08/28/17 06:30 PT 14.5 SECONDS (9.4-12.5) H 08/29/17 06:05 INR 1.31 (0.93-1.08) H 08/29/17 06:05 APTT 32.0 Seconds (25.1-36.5) 08/29/17 06:05 - Constitutional Appears: Well, Non-toxic, No Acute Distress - Extremities Exam Extremities Exam: absent: Calf Tenderness Additional comments: Bilateral LE exam VASC: DP/PT pulses are palpable on the right foot but non-palpable on the left foot, FIELD AIDE: < 3 sec to all digits, TG: warm to cool from proximal to distal on the right LE and cool to cool on the left LE, no pitting or non-pitting edema noted on the left LE DERM: Open wound noted to lateral aspect of left leg measuring approximately 4cm x 3.5cmx 0.3 cm noted on the distal lateral aspect of the left leg, minimal serosansuinous drainage noted on the bandage, no purulent drainage is noted, no malodor, surrounding erythema present <0.5cm margin, no tunneling, no undermining, no inter digital maceration noted b/l NEURO: Protective sensation grossly intact ORTHO: mild tenderness on palpation of the wound site, Limb length is shorter on the left compared to the right LE - Neurological Exam Neurological Exam: Alert, Awake, Oriented x3 - Psychiatric Exam Psychiatric exam: Normal Affect, Normal Mood Assessment and Plan - Assessment and Plan (Free Text) Assessment: 47 y/o male seen and evaluated at bedside for chronic infected left lateral leg wound Plan: Patient seen and evaluated at bedside Patient discussed in details with attending Dr. Marcial Labs, vitals and charts reviewed: Afebrile WBC @ 6.4 as of 08/27 Cultures final; Staph Aureus Wound cleaned with normal saline Dressing applied using Bactroban, optifoam, SHOAIB bandage Arterial duplex shows normal ALBINA/PVR No evidence of acute osseous events seen on bone scan IV abx as per ID: Vancomycin and Zosyn Podiatry will continue to follow patient while in house <Myrna Marcial - Last Filed: 09/03/17 14:48> Objective - Vital Signs/Intake and Output Vital Signs (last 24 hours): Temp Pulse Resp BP Pulse Ox 97.5 F L 78 18 105/67 98 09/03/17 07:25 09/03/17 07:25 09/03/17 07:25 09/03/17 07:25 09/03/17 07:25 Intake and Output: 09/03/17 09/03/17 06:59 18:59 Intake Total 960 Balance 960 - Medications Medications: Current Medications Acetaminophen (Tylenol 325mg Tab) 650 mg PO Q4H PRN PRN Reason: Pain, moderate (4-7) Piperacillin Sod/Tazobactam Sod (Zosyn 3.375 In Ns 100ml) 100 mls @ 200 mls/hr IVPB Q6 CARIDAD PRN Reason: Protocol Stop: 09/05/17 18:01 Last Admin: 09/03/17 11:51 Dose: 200 mls/hr Vancomycin HCl (Vancomycin 1gm) 1 gm in 250 mls @ 167 mls/hr IVPB Q12H [facility] PRN Reason: Protocol Last Admin: 09/03/17 13:25 Dose: 167 mls/hr Vancomycin HCl (Vancomycin 1gm) 1 gm in 250 mls @ 167 mls/hr IVPB ONCE ONE PRN Reason: Protocol Stop: 09/03/17 20:29 Mupirocin (Bactroban Ointment) 0 gm TOP BID [facility] Last Admin: 09/03/17 10:12 Dose: 1 applic Ondansetron HCl (Zofran Inj) 4 mg IVP Q6H PRN PRN Reason: Nausea/Vomiting Pantoprazole Sodium (Protonix Ec Tab) 40 mg PO 0600 [facility] Last Admin: 09/03/17 05:20 Dose: 40 mg Tramadol HCl (Ultram) 50 mg PO TID PRN PRN Reason: Pain, severe (8-10) Last Admin: 08/28/17 01:11 Dose: 50 mg - Labs Labs: 08/27/17 09:15 08/28/17 06:30 PT 14.5 SECONDS (9.4-12.5) H 08/29/17 06:05 INR 1.31 (0.93-1.08) H 08/29/17 06:05 APTT 32.0 Seconds (25.1-36.5) 08/29/17 06:05 Attending/Attestation - Attestation I have personally seen and examined this patient.: Yes I have fully participated in the care of the patient.: Yes I have reviewed all pertinent clinical information, including history, physical exam and plan: Yes
[2017-08-31] MEDS: Vancomycin 1gm in NS 250ml 1 GM/250 ML BAG IVPB SCH ×2 (00:11→12:51)
[2017-08-31] MEDS: Piperacillin/Tazobact 3.375 gm 100 ML IVPB SCH ×4 (05:40→23:20)
[2017-08-31] MEDS: Pantoprazole 40 mg EC Tab PO SCH (05:41)
--- NOTE | 2017-08-31 08:49 | PN ---
DATE: 08/29/2017 LOCATION: The patient is seen in [facility] in [place], room 564, bed 2. SUBJECTIVE: The patient was admitted with pain in his lower back and CAT scan findings of injury to the lower spine area involving vertebrae #2 and 3 of the lumbar spine. PAST MEDICAL HISTORY: Osteomyelitis, history of injury to the left hip. The patient has 2 pins, which were placed many, many years ago. The patient also has past history of infection in the skin and also in the foot and ankle area. PHYSICAL EXAMINATION GENERAL: The patient is seen this morning, he is conscious, comfortable, but he says on walking he has pain in the back. VITAL SIGNS: The patient is afebrile, temperature 98.1, blood pressure 130/85. The patent's respirations are 20, O2 saturation is 99% on room air. HEART: Normal sinus rhythm. S1 and S2 present. LUNGS: Clear. ABDOMEN: Soft. No tenderness. No masses. CENTRAL NERVOUS SYSTEM: The patient has no focal deficits. Cranial nerves are intact DIAGNOSTIC DATA: The patient's MRI showed evidence of osteomyelitis involving lumbar vertebrae 2 and 3 with the effacement of disk in that site. CAT scan of the abdomen reveals lymphadenopathy along the iliac artery. The patient has enlargement of the liver and spleen. LABORATORY: His blood work, hemoglobin is 11.2. The patient's differential shows granulocyte count of 70%. MEDICATIONS: His medications consists of Bactroban for the left ankle wound. The patient gets Protonix for gastritis and reflux. The patient is on Tylenol for pain. ASSESSMENT AND PLAN: The patient's finding is osteomyelitis. The patient also has staphylococcus growing in the ulcer that is in the left foot ankle area.The patient is seen by Infectious Disease medical device sales consultant, Dr. Quinones. The patient is also seen by Rattan Worker, Dr. Arriola. The patient has consultation with risk control specialist. We will have the patient get a PICC line as he will need to continue antibiotic for several weeks. At this time, we will have Dr. Prem Palmer on consult to do a biopsy to culture the area of the spine. His overall prognosis is guarded. His condition is clinically stabilized and will follow up regarding the treatment. His sed rate is not elevated. Berna Bernard MD [facility] # [id number] [facility]
--- NOTE | 2017-08-31 11:02 | PN ---
DATE: 08/31/2017 SUBJECTIVE: The patient seen earlier today in no acute distress. PHYSICAL EXAMINATION: VITAL SIGNS: On exam, temperature is 98, blood pressure is 130/60, and respiratory rate of 16. HEENT: Examination of HEENT is unremarkable. NECK: Supple. LUNGS: Have decreased breath sounds. HEART: Normal S1 and S2. GASTROINTESTINAL: Abdominal examination is soft and nontender. LABORATORY DATA: Examination reveals a white count of 6.4, hemoglobin of 11 and BUN of 11 and creatinine of 1.0. Urinalysis is noted. Microbiology is pending.. AFB is negative from the spine and Gram stain is no organism seen. Cultures so far are no growth at 24 hours. No fungal elements are seen. ASSESSMENT AND PLAN: This is a 47-year-old male with L2-L3 disk space infection, diskitis, osteomyelitis, status post Interventional Radiology current biopsy and aspiration, awaiting for pathology report and the final culture report. Currently on vancomycin and Zosyn. Cultures are reviewed and we will follow with you. Po Quinones MD
--- NOTE | 2017-08-31 11:30 | CP.PCM.PN ---
<Elliott Castaneda - Last Filed: 08/31/17 11:27> Subjective - Date & Time of Evaluation Date of Evaluation: 08/31/17 Time of Evaluation: 11:27 - Subjective Subjective: 47 y/o male seen and evaluated at bedside for chronic left lateral leg wound. Patient is seen while PICC line placement in progress. Patient's dressing is clean, dry and intact. Patient appears to be resting comfortably in his bed and denies of any other complains at this time. Objective - Vital Signs/Intake and Output Vital Signs (last 24 hours): Temp Pulse Resp BP Pulse Ox 98 F 81 20 133/69 98 08/31/17 07:53 08/31/17 07:53 08/31/17 07:53 08/31/17 07:53 08/31/17 07:53 Intake and Output: 08/31/17 08/31/17 06:59 18:59 Intake Total 900 Output Total 400 Balance 500 - Medications Medications: Current Medications Acetaminophen (Tylenol 325mg Tab) 650 mg PO Q4H PRN PRN Reason: Pain, moderate (4-7) Piperacillin Sod/Tazobactam Sod (Zosyn 3.375 In Ns 100ml) 100 mls @ 200 mls/hr IVPB Q6 CARIDAD PRN Reason: Protocol Stop: 09/05/17 18:01 Last Admin: 08/31/17 05:40 Dose: 200 mls/hr Vancomycin HCl (Vancomycin 1gm) 1 gm in 250 mls @ 167 mls/hr IVPB Q12H CARIDAD PRN Reason: Protocol Last Admin: 08/31/17 00:11 Dose: 167 mls/hr Mupirocin (Bactroban Ointment) 0 gm TOP BID [facility] Last Admin: 08/30/17 10:21 Dose: 1 applic Ondansetron HCl (Zofran Inj) 4 mg IVP Q6H PRN PRN Reason: Nausea/Vomiting Pantoprazole Sodium (Protonix Ec Tab) 40 mg PO 0600 [facility] Last Admin: 08/31/17 05:41 Dose: 40 mg Tramadol HCl (Ultram) 50 mg PO TID PRN PRN Reason: Pain, severe (8-10) Last Admin: 08/28/17 01:11 Dose: 50 mg - Labs Labs: 08/27/17 09:15 08/28/17 06:30 PT 14.5 SECONDS (9.4-12.5) H 08/29/17 06:05 INR 1.31 (0.93-1.08) H 08/29/17 06:05 APTT 32.0 Seconds (25.1-36.5) 08/29/17 06:05 - Constitutional Appears: Well, Non-toxic, No Acute Distress - Extremities Exam Extremities Exam: absent: Calf Tenderness Additional comments: Dressing is clean, dry and intact with no strike through - Neurological Exam Neurological Exam: Alert, Awake, Oriented x3 - Psychiatric Exam Psychiatric exam: Normal Affect, Normal Mood Assessment and Plan - Assessment and Plan (Free Text) Assessment: 47 y/o male seen and evaluated at bedside for chronic infected left lateral leg wound Plan: Patient seen and evaluated at bedside Patient discussed in details with attending Dr. Nicholson Labs, vitals and charts reviewed: Afebrile WBC @ 6.4 as of 08/27 Cultures final; Staph Aureus Dressing change order in place by nurse after the PICC line has been placed Arterial duplex shows normal ALBINA/PVR No evidence of acute osseous events seen on bone scan IV abx as per ID: Vancomycin and Zosyn Podiatry will continue to follow patient while in house <Sharif Nicholson - Last Filed: 08/31/17 14:05> Objective - Vital Signs/Intake and Output Vital Signs (last 24 hours): Temp Pulse Resp BP Pulse Ox 98 F 81 20 133/69 98 08/31/17 07:53 08/31/17 07:53 08/31/17 07:53 08/31/17 07:53 08/31/17 07:53 Intake and Output: 08/31/17 08/31/17 06:59 18:59 Intake Total 900 Output Total 400 Balance 500 - Medications Medications: Current Medications Acetaminophen (Tylenol 325mg Tab) 650 mg PO Q4H PRN PRN Reason: Pain, moderate (4-7) Piperacillin Sod/Tazobactam Sod (Zosyn 3.375 In Ns 100ml) 100 mls @ 200 mls/hr IVPB Q6 CARIDAD PRN Reason: Protocol Stop: 09/05/17 18:01 Last Admin: 08/31/17 11:53 Dose: 200 mls/hr Vancomycin HCl (Vancomycin 1gm) 1 gm in 250 mls @ 167 mls/hr IVPB Q12H CARIDAD PRN Reason: Protocol Last Admin: 08/31/17 12:51 Dose: 167 mls/hr Mupirocin (Bactroban Ointment) 0 gm TOP BID [facility] Last Admin: 08/31/17 11:54 Dose: 1 applic Ondansetron HCl (Zofran Inj) 4 mg IVP Q6H PRN PRN Reason: Nausea/Vomiting Pantoprazole Sodium (Protonix Ec Tab) 40 mg PO 0600 [facility] Last Admin: 08/31/17 05:41 Dose: 40 mg Tramadol HCl (Ultram) 50 mg PO TID PRN PRN Reason: Pain, severe (8-10) Last Admin: 08/28/17 01:11 Dose: 50 mg - Labs Labs: 08/27/17 09:15 08/28/17 06:30 PT 14.5 SECONDS (9.4-12.5) H 08/29/17 06:05 INR 1.31 (0.93-1.08) H 08/29/17 06:05 APTT 32.0 Seconds (25.1-36.5) 08/29/17 06:05 Attending/Attestation - Attestation I have personally seen and examined this patient.: Yes I have fully participated in the care of the patient.: Yes I have reviewed all pertinent clinical information, including history, physical exam and plan: Yes
--- NOTE | 2017-08-31 12:29 | PN ---
DATE: SUBJECTIVE: The patient is seen in [facility] in [place]. He is a 47-year-old white male. The patient was admitted with pain in the lower back, a lesion involving the lumbar spine between second and third vertebrae. The patient's disk space is effaced. The patient has an infection. This is being diagnosed by MRI and biopsy was performed. We do not have the report of the biopsy material. The patient has past history of osteomyelitis involving the hip. The patient has infection on the foot with an ulcer in the ankle area. The patient has a history of sepsis in the past. PHYSICAL EXAMINATION: VITAL SIGNS: Currently, the patient's vital signs; pulse is 81, blood pressure 133/69, respirations are 20, O2 sat is 98% on room air. LUNGS: Clear. HEART: Normal sinus rhythm. ABDOMEN: Soft. Liver and spleen not palpable. TRACK GREASER: No focal deficit. The patient's spine, there is some tenderness in the lower back. The patient said he is fine, but he is very stiff when he tries to standup. He does not have excruciating pain, but he is on pain medication. He is on Zosyn and vancomycin at this time, and the patient also gets Protonix for gastritis and reflux. His overall prognosis is guarded. Condition is improving. We will follow up and with antibiotic treatment at this time. Awaiting for the biopsy report to come back so we can see whether there is any specificity to the infection so that the antibiotics can be adjusted. Berna Bernard MD [facility]
[2017-09-01] MEDS: Vancomycin 1gm in NS 250ml 1 GM/250 ML BAG IVPB SCH ×2 (00:14→12:36)
[2017-09-01] MEDS: Piperacillin/Tazobact 3.375 gm 100 ML IVPB SCH ×3 (05:20→17:07)
[2017-09-01] MEDS: Pantoprazole 40 mg EC Tab PO SCH (05:21)
--- NOTE | 2017-09-01 10:42 | PN ---
DATE: SUBJECTIVE: The patient was admitted to the hospital with infection in the lower spine in the area between L2 and L3. The patient has evidence of disk effacement. The patient has pain in that area and evaluation by CAT scan and MRI. The patient has had biopsy of lesion. He is currently being treated with antibiotics. PHYSICAL EXAMINATION: VITAL SIGNS: His pulse is 79, blood pressure is 110/65, respirations are 20, and O2 saturation is 100% on room air. LUNGS: Clear. HEART: Normal sinus rhythm. ABDOMEN: Soft. Liver and spleen not palpable. CENTRAL NERVOUS SYSTEM: No focal deficits. IMPRESSION AND PLAN: The patient is currently getting treatment with antibiotic. He is on vancomycin and Zosyn and Infectious Disease is following the patient. We are awaiting for biopsy and culture report to finalize his treatment plan. Berna Bernard MD [facility]
--- NOTE | 2017-09-01 11:07 | PN ---
SUBJECTIVE: A 47-year-old male seen at bedside for continued evaluation and management of a chronic left lateral lower leg wound. The patient had PICC line placed yesterday and is resting comfortably, and has no new complaints. PHYSICAL EXAMINATION: VITAL SIGNS: Reveal a temperature of 97.7, pulse rate of 79, blood pressure 108/62, respiratory rate of 20. EXTREMITIES: Palpable pedal pulses noted bilaterally. There is a full-thickness ulceration located on the anterior lateral aspect of the left lower leg that presents a teardrop shape. The base of the ulceration is primarily granular. Wound measures approximately 4.5 cm x 2.8 cm x 0.3 cm. The wound is not probe to tendon or bone. There is no purulence emanating from the wound. There are no signs of acute bacterial infection. The wound does not appear cellulitic. LABORATORY DATA: Laboratory findings show a white count 6.4, hemoglobin of 11.2, hematocrit of 35.1, platelet count of 297. His ESR is elevated at 121. Microbiology report of the left lower leg reveals Staphylococcus aureus growth. Bone scan taken reveals no radiographic evidence of acute osteomyelitis and underlying region of ulceration. Arterial duplexes revealed normal ALBINA, PVRs. ASSESSMENT: Slowly resolving left lower leg ulceration. PLAN: The patient's wound was cleansed with normal sterile saline. An application of Bactroban and Optifoam was applied. We will continue with IV antibiotics as per Infectious Disease. The patient is set to be discharge within the next day or so, and will continue to be followed at the wound center upon discharge. The patient will be seen and followed until discharge. Sharif Nicholson DPM
[2017-09-02] MEDS: Piperacillin/Tazobact 3.375 gm 100 ML IVPB SCH ×5 (00:31→23:09)
[2017-09-02] MEDS: Vancomycin 1gm in NS 250ml 1 GM/250 ML BAG IVPB SCH ×2 (00:59→12:50)
[2017-09-02] MEDS: Pantoprazole 40 mg EC Tab PO SCH (05:52)
--- NOTE | 2017-09-02 12:18 | PN ---
DATE: LOCATION: The patient is in [facility] in room 564, bed 2. SUBJECTIVE: He was admitted with an infection in the spine involving lumbar vertebrae #2 and #3. The patient is being treated with antibiotics. PHYSICAL EXAMINATION: VITAL SIGNS: This morning, temperature is 97.9, blood pressure is 134/88, respirations 20, and O2 sat is 100% on room air. GENERAL: The patient has no complaint of pain at this time. The patient says that his lower back is stiff. LUNGS: Clear. HEART: Normal sinus rhythm. S1 and S2 present. ABDOMEN: Soft. Liver and spleen not palpable. CENTRAL NERVOUS SYSTEM: No focal deficit. The patient has limp of left leg from previous injury to the hip on the left side. The patient does have 2 pins placed in the hip many years ago. Currently, the patient is on Zosyn and Vancomycin. Biopsy of the spine was done. Results are not completed. After the information is obtained, the patient's treatment plan will be established. His condition is clinically stable. Overall prognosis is guarded at this point. Berna Bernard MD [facility]
--- NOTE | 2017-09-02 12:38 | PN ---
DATE: 09/02/2017 SUBJECTIVE: The patient in bed in no acute distress, and nontoxic. No fevers and no chills. Tolerating the antibiotics well. PHYSICAL EXAMINATION: VITAL SIGNS: Temperature is 97, blood pressure is 130/80, respiratory rate is 20, and heart rate is 79. HEENT: Examination of the HEENT is unremarkable. NECK: Supple. LUNGS: Decreased breath sounds. HEART: Normal S1 and S2. ABDOMEN: Soft and nontender. LABORATORY DATA: Examination reveals the patient's white count of 6.4, hemoglobin of 11, and platelets of 297. BUN of 11 and creatinine of 1.0. Urinalysis is noted and microbiology reveals spine culture, aspirate culture has no growth at 2 days. Acid fast smear is negative. MEDICATIONS: Review of orders reveals the patient to be on vancomycin and Zosyn. ASSESSMENT AND PLAN: This is a 47-year-old male with L2-L3 disk space infection with diskitis and osteomyelitis, status post Interventional Radiology aspirate and biopsy, currently awaiting for final results. Thus far the cultures are no growth at 48 hours, on vancomycin and Zosyn. If no organism identified, we would recommend completing with vancomycin and Zosyn for at least 4 to 6 weeks perhaps longer period based on C-reactive protein, sedimentation rate, and vancomycin trough levels once weekly and imaging. We will follow closely with you. The patient is advised to follow up with me in the office. Po Quinones MD
--- NOTE | 2017-09-02 13:18 | CP.PCM.PN ---
<KoryJina - Last Filed: 09/02/17 21:59> Subjective - Date & Time of Evaluation Date of Evaluation: 09/02/17 Time of Evaluation: 13:18 - Subjective Subjective: 47 y/o male seen and evaluated at bedside for chronic left lateral leg wound. Patient's dressing is clean, dry and intact. Patient appears to be resting comfortably in his bed and denies of any other complaints at this time. Pt states he will likely be leaving tomorrow. Pt has his PICC line in his right arm. Pt denies F/C/N/V/CP/SOB Objective - Vital Signs/Intake and Output Vital Signs (last 24 hours): Temp Pulse Resp BP Pulse Ox 97.9 F 79 20 134/88 100 09/02/17 07:30 09/02/17 07:30 09/02/17 07:30 09/02/17 07:30 09/02/17 07:30 Intake and Output: 09/02/17 09/02/17 06:59 18:59 Intake Total 590 Output Total 300 Balance 290 - Medications Medications: Current Medications Acetaminophen (Tylenol 325mg Tab) 650 mg PO Q4H PRN PRN Reason: Pain, moderate (4-7) Piperacillin Sod/Tazobactam Sod (Zosyn 3.375 In Ns 100ml) 100 mls @ 200 mls/hr IVPB Q6 [facility] PRN Reason: Protocol Stop: 09/05/17 18:01 Last Admin: 09/02/17 11:36 Dose: 200 mls/hr Vancomycin HCl (Vancomycin 1gm) 1 gm in 250 mls @ 167 mls/hr IVPB Q12H [facility] PRN Reason: Protocol Last Admin: 09/02/17 12:50 Dose: 167 mls/hr Mupirocin (Bactroban Ointment) 0 gm TOP BID [facility] Last Admin: 09/02/17 12:50 Dose: 1 applic Ondansetron HCl (Zofran Inj) 4 mg IVP Q6H PRN PRN Reason: Nausea/Vomiting Pantoprazole Sodium (Protonix Ec Tab) 40 mg PO 0600 [facility] Last Admin: 09/02/17 05:52 Dose: 40 mg Tramadol HCl (Ultram) 50 mg PO TID PRN PRN Reason: Pain, severe (8-10) Last Admin: 08/28/17 01:11 Dose: 50 mg - Labs Labs: 08/27/17 09:15 08/28/17 06:30 PT 14.5 SECONDS (9.4-12.5) H 08/29/17 06:05 INR 1.31 (0.93-1.08) H 08/29/17 06:05 APTT 32.0 Seconds (25.1-36.5) 08/29/17 06:05 - Constitutional Appears: Well, Non-toxic, No Acute Distress - Extremities Exam Additional comments: LLE dressing is clean, dry and intact with no strike through - Neurological Exam Neurological Exam: Alert, Awake, Oriented x3 - Psychiatric Exam Psychiatric exam: Normal Affect, Normal Mood Assessment and Plan - Assessment and Plan (Free Text) Assessment: 47 y/o male seen and evaluated at bedside for chronic infected left lateral leg wound Plan: Patient seen and evaluated at bedside Patient's plan discussed in detail with attending Dr. Marcial Labs, vitals and charts reviewed: afebrile, WBC @ 6.4 as of 08/27, NNL since Cultures final; Methicillin sensitive Staph Aureus Dressing change order in place by nurse, changed just prior to visit today Arterial duplex shows normal ALBINA/PVR No evidence of acute osseous events seen on bone scan IV abx as per ID: Vancomycin and Zosyn Podiatry will continue to follow patient while in house Pt to be discharged tomorrow or Sunday and will follow up in the wound care center <Myrna Marcial - Last Filed: 09/03/17 14:50> Objective - Vital Signs/Intake and Output Vital Signs (last 24 hours): Temp Pulse Resp BP Pulse Ox 97.5 F L 78 18 105/67 98 09/03/17 07:25 09/03/17 07:25 09/03/17 07:25 09/03/17 07:25 09/03/17 07:25 Intake and Output: 09/03/17 09/03/17 06:59 18:59 Intake Total 960 Balance 960 - Medications Medications: Current Medications Acetaminophen (Tylenol 325mg Tab) 650 mg PO Q4H PRN PRN Reason: Pain, moderate (4-7) Piperacillin Sod/Tazobactam Sod (Zosyn 3.375 In Ns 100ml) 100 mls @ 200 mls/hr IVPB Q6 [facility] PRN Reason: Protocol Stop: 09/05/17 18:01 Last Admin: 09/03/17 11:51 Dose: 200 mls/hr Vancomycin HCl (Vancomycin 1gm) 1 gm in 250 mls @ 167 mls/hr IVPB Q12H [facility] PRN Reason: Protocol Last Admin: 09/03/17 13:25 Dose: 167 mls/hr Vancomycin HCl (Vancomycin 1gm) 1 gm in 250 mls @ 167 mls/hr IVPB ONCE ONE PRN Reason: Protocol Stop: 09/03/17 20:29 Mupirocin (Bactroban Ointment) 0 gm TOP BID [facility] Last Admin: 09/03/17 10:12 Dose: 1 applic Ondansetron HCl (Zofran Inj) 4 mg IVP Q6H PRN PRN Reason: Nausea/Vomiting Pantoprazole Sodium (Protonix Ec Tab) 40 mg PO 0600 [facility] Last Admin: 09/03/17 05:20 Dose: 40 mg Tramadol HCl (Ultram) 50 mg PO TID PRN PRN Reason: Pain, severe (8-10) Last Admin: 08/28/17 01:11 Dose: 50 mg - Labs Labs: 08/27/17 09:15 08/28/17 06:30 PT 14.5 SECONDS (9.4-12.5) H 08/29/17 06:05 INR 1.31 (0.93-1.08) H 08/29/17 06:05 APTT 32.0 Seconds (25.1-36.5) 08/29/17 06:05 Attending/Attestation - Attestation I have personally seen and examined this patient.: Yes I have fully participated in the care of the patient.: Yes I have reviewed all pertinent clinical information, including history, physical exam and plan: Yes
[2017-09-03] MEDS: Vancomycin 1gm in NS 250ml 1 GM/250 ML BAG IVPB SCH ×2 (00:30→13:25)
[2017-09-03] MEDS: Pantoprazole 40 mg EC Tab PO SCH (05:20)
[2017-09-03] MEDS: Piperacillin/Tazobact 3.375 gm 100 ML IVPB SCH ×2 (05:20→11:51)
--- NOTE | 2017-09-03 09:30 | PN ---
DATE: 09/01/2017 SUBJECTIVE: The patient is in room in room number 564, bed 2. No fevers and no chills. No nausea and no vomiting. PHYSICAL EXAMINATION: VITAL SIGNS: On exam, temperature is 98, blood pressure is 108/60, and respiratory rate of 20. HEENT: Examination of HEENT is unremarkable. NECK: Supple. LUNGS: Have decreased breath sounds. HEART: Exam is normal S1 and S2. GASTROINTESTINAL: Abdominal examination is soft and nontender. LABORATORY DATA: Examination reveals a white count of 6.4 and hemoglobin of 11. Chemistries reveals a BUN of 11 and creatinine of 1.0. Urinalysis is noted. Laboratory examination is noted. ASSESSMENT AND PLAN: This is a 47-year-old male with L2-L3 disk disease and space infection, diskitis, osteomyelitis, status post interventional radiology and biopsy aspiration and awaiting for pathology report. Currently on vancomycin and Zosyn and thus far microbiology has had no growth from the spine at 24 hours. Awaiting for final culture results. If cultures remain negative, will need both antibiotics for at least 4 to 6 weeks. Pending CBC, SMA-18, sedimentation rate, C-reactive protein and vancomycin trough level once weekly. Po Quinones MD
--- NOTE | 2017-09-03 09:56 | CP.PCM.PN ---
<Jacqueline Castanedaamafloyd - Last Filed: 09/03/17 09:52> Subjective - Date & Time of Evaluation Date of Evaluation: 09/03/17 Time of Evaluation: 09:52 - Subjective Subjective: 47 y/o male seen and evaluated at bedside for chronic left lateral leg wound. Patient appears to be resting comfortably in his bed and denies of any other complaints at this time. Patient denies of any acute overnight events. Patient states he will likely be leaving tomorrow. Patient denies F/C/N/V/CP/SOB Objective - Vital Signs/Intake and Output Vital Signs (last 24 hours): Temp Pulse Resp BP Pulse Ox 97.5 F L 78 18 105/67 98 09/03/17 07:25 09/03/17 07:25 09/03/17 07:25 09/03/17 07:25 09/03/17 07:25 Intake and Output: 09/03/17 09/03/17 06:59 18:59 Intake Total 960 Balance 960 - Medications Medications: Current Medications Acetaminophen (Tylenol 325mg Tab) 650 mg PO Q4H PRN PRN Reason: Pain, moderate (4-7) Piperacillin Sod/Tazobactam Sod (Zosyn 3.375 In Ns 100ml) 100 mls @ 200 mls/hr IVPB Q6 [facility] PRN Reason: Protocol Stop: 09/05/17 18:01 Last Admin: 09/03/17 05:20 Dose: 200 mls/hr Vancomycin HCl (Vancomycin 1gm) 1 gm in 250 mls @ 167 mls/hr IVPB Q12H [facility] PRN Reason: Protocol Last Admin: 09/03/17 00:30 Dose: 167 mls/hr Mupirocin (Bactroban Ointment) 0 gm TOP BID [facility] Last Admin: 09/02/17 17:34 Dose: Not Given Ondansetron HCl (Zofran Inj) 4 mg IVP Q6H PRN PRN Reason: Nausea/Vomiting Pantoprazole Sodium (Protonix Ec Tab) 40 mg PO 0600 [facility] Last Admin: 09/03/17 05:20 Dose: 40 mg Tramadol HCl (Ultram) 50 mg PO TID PRN PRN Reason: Pain, severe (8-10) Last Admin: 08/28/17 01:11 Dose: 50 mg - Labs Labs: 08/27/17 09:15 08/28/17 06:30 PT 14.5 SECONDS (9.4-12.5) H 08/29/17 06:05 INR 1.31 (0.93-1.08) H 08/29/17 06:05 APTT 32.0 Seconds (25.1-36.5) 08/29/17 06:05 - Constitutional Appears: Well, Non-toxic, No Acute Distress - Extremities Exam Extremities Exam: absent: Calf Tenderness Additional comments: Bilateral LE exam VASC: DP/PT pulses are palpable on the right foot but non-palpable on the left foot, INSTRU[employer] SYSTEM[employer] SPECIALIST: < 3 sec to all digits, TG: warm to cool from proximal to distal on the right LE and cool to cool on the left LE, no pitting or non-pitting edema noted on the left LE DERM: Open wound noted to lateral aspect of left leg measuring approximately 4cm x 3.5cmx 0.3 cm noted on the distal lateral aspect of the left leg, minimal serosansuinous drainage noted on the bandage, no purulent drainage is noted, no malodor, surrounding erythema present <0.5cm margin, no tunneling, no undermining, no inter digital maceration noted b/l NEURO: Protective sensation grossly intact ORTHO: mild tenderness on palpation of the wound site, Limb length is shorter on the left compared to the right LE - Neurological Exam Neurological Exam: Alert, Awake, Oriented x3 - Psychiatric Exam Psychiatric exam: Normal Affect, Normal Mood Assessment and Plan - Assessment and Plan (Free Text) Assessment: 47 y/o male seen and evaluated at bedside for chronic infected left lateral leg wound Plan: Patient seen and evaluated at bedside Patient discussed in details with attending Dr. Marcial Labs, vitals and charts reviewed: Afebrile WBC @ 6.4 as of 08/27 Cultures final; Staph Aureus Wound cleaned with normal saline Dressing applied using Bactroban, optifoam, SHOAIB bandage Arterial duplex shows normal ALBINA/PVR No evidence of acute osseous events seen on bone scan IV abx as per ID: Vancomycin and Zosyn Patient is stable from podiatry standpoint - will continue to follow patient while in house <Myrna Marcial - Last Filed: 09/03/17 14:51> Objective - Vital Signs/Intake and Output Vital Signs (last 24 hours): Temp Pulse Resp BP Pulse Ox 97.5 F L 78 18 105/67 98 09/03/17 07:25 09/03/17 07:25 09/03/17 07:25 09/03/17 07:25 09/03/17 07:25 Intake and Output: 09/03/17 09/03/17 06:59 18:59 Intake Total 960 Balance 960 - Medications Medications: Current Medications Acetaminophen (Tylenol 325mg Tab) 650 mg PO Q4H PRN PRN Reason: Pain, moderate (4-7) Piperacillin Sod/Tazobactam Sod (Zosyn 3.375 In Ns 100ml) 100 mls @ 200 mls/hr IVPB Q6 [facility] PRN Reason: Protocol Stop: 09/05/17 18:01 Last Admin: 09/03/17 11:51 Dose: 200 mls/hr Vancomycin HCl (Vancomycin 1gm) 1 gm in 250 mls @ 167 mls/hr IVPB Q12H [facility] PRN Reason: Protocol Last Admin: 09/03/17 13:25 Dose: 167 mls/hr Vancomycin HCl (Vancomycin 1gm) 1 gm in 250 mls @ 167 mls/hr IVPB ONCE ONE PRN Reason: Protocol Stop: 09/03/17 20:29 Mupirocin (Bactroban Ointment) 0 gm TOP BID [facility] Last Admin: 09/03/17 10:12 Dose: 1 applic Ondansetron HCl (Zofran Inj) 4 mg IVP Q6H PRN PRN Reason: Nausea/Vomiting Pantoprazole Sodium (Protonix Ec Tab) 40 mg PO 0600 [facility] Last Admin: 09/03/17 05:20 Dose: 40 mg Tramadol HCl (Ultram) 50 mg PO TID PRN PRN Reason: Pain, severe (8-10) Last Admin: 08/28/17 01:11 Dose: 50 mg - Labs Labs: 08/27/17 09:15 08/28/17 06:30 PT 14.5 SECONDS (9.4-12.5) H 08/29/17 06:05 INR 1.31 (0.93-1.08) H 08/29/17 06:05 APTT 32.0 Seconds (25.1-36.5) 08/29/17 06:05 Attending/Attestation - Attestation I have personally seen and examined this patient.: Yes I have fully participated in the care of the patient.: Yes I have reviewed all pertinent clinical information, including history, physical exam and plan: Yes
--- NOTE | 2017-09-03 10:07 | PN ---
DATE: SUBJECTIVE: The patient was admitted with diagnosis of osteomyelitis involving the spine, lumbar vertebrae between 2 and 3. THE PATIENT HAS ALLERGIES TO MEROPENEM AND MOTRIN. The patient has past history of osteomyelitis of the hip and also the patient had infection of the foot ulcer in the ankle area. The patient has past history of renal colic. The patient is seen this morning. He is afebrile. He feels okay. PHYSICAL EXAMINATION: VITAL SIGNS: Pulse is 78, blood pressure is 105/67, respirations are 18, and O2 saturation is 98% on room air. LUNGS: Clear. HEART: Normal sinus rhythm. ABDOMEN: Soft. Liver and spleen not palpable. CENTRAL NERVOUS SYSTEM: No focal deficits are noted. PLAN: The patient is being treated with antibiotic. He is Zosyn and vancomycin. The patient is on regular heart-healthy diet. We are waiting for the biopsy and culture report, so that infectious disease, Dr. Bernard for treatment plan for this patient. His overall prognosis is reasonable. The patient's overall condition now is clinically stable. He will continue current management and follow up. Berna Bernard MD
--- NOTE | 2017-09-03 13:46 | CP.PCM.PN ---
Subjective - Date & Time of Evaluation Date of Evaluation: 09/03/17 Time of Evaluation: 11:45 - Subjective Subjective: Less back pain, no fevers overnight, no bowel or urinary incontinence. Objective - Vital Signs/Intake and Output Vital Signs (last 24 hours): Temp Pulse Resp BP Pulse Ox 97.5 F L 78 18 105/67 98 09/03/17 07:25 09/03/17 07:25 09/03/17 07:25 09/03/17 07:25 09/03/17 07:25 Intake and Output: 09/03/17 09/03/17 06:59 18:59 Intake Total 960 Balance 960 - Medications Medications: Current Medications Acetaminophen (Tylenol 325mg Tab) 650 mg PO Q4H PRN PRN Reason: Pain, moderate (4-7) Piperacillin Sod/Tazobactam Sod (Zosyn 3.375 In Ns 100ml) 100 mls @ 200 mls/hr IVPB Q6 [facility] PRN Reason: Protocol Stop: 09/05/17 18:01 Last Admin: 09/03/17 05:20 Dose: 200 mls/hr Vancomycin HCl (Vancomycin 1gm) 1 gm in 250 mls @ 167 mls/hr IVPB Q12H [facility] PRN Reason: Protocol Last Admin: 09/03/17 00:30 Dose: 167 mls/hr Mupirocin (Bactroban Ointment) 0 gm TOP BID [facility] Last Admin: 09/03/17 10:12 Dose: 1 applic Ondansetron HCl (Zofran Inj) 4 mg IVP Q6H PRN PRN Reason: Nausea/Vomiting Pantoprazole Sodium (Protonix Ec Tab) 40 mg PO 0600 [facility] Last Admin: 09/03/17 05:20 Dose: 40 mg Tramadol HCl (Ultram) 50 mg PO TID PRN PRN Reason: Pain, severe (8-10) Last Admin: 08/28/17 01:11 Dose: 50 mg - Labs Labs: 08/27/17 09:15 08/28/17 06:30 PT 14.5 SECONDS (9.4-12.5) H 08/29/17 06:05 INR 1.31 (0.93-1.08) H 08/29/17 06:05 APTT 32.0 Seconds (25.1-36.5) 08/29/17 06:05 - Constitutional Appears: Non-toxic - Head Exam Head Exam: NORMAL INSPECTION - Respiratory Exam Respiratory Exam: Decreased Breath Sounds - Cardiovascular Exam Cardiovascular Exam: +S1, +S2 - GI/Abdominal Exam GI & Abdominal Exam: Soft. absent: Tenderness Assessment and Plan - Assessment and Plan (Free Text) Plan: Assessment L2-L3 disc space infection / discitis and osteomyelitis S/P IR-guided biopsy and aspiration - cultures have been negative but patient has been on antibiotics left hip arthroplasty and left hip prosthetic joint infection S/P treatment with antibiotics and surgery history of nephrolithiasis obesity with BMI 35 Plan continue Vancomycin and Zosyn to complete at least 4-6 more weeks of therapy, with weekly ESR, CRP, CBC, CMP, Vanco trough level Vanco trough level today is only 10.3 and target is 15-20 - will give another dose of IV Vancomycin later tonight patient should follow up with PMD for monitoring
[2017-09-03 16:18] VITALS: BP 129/86; PULSE 82; RESP 16; TEMP 98.1; O2SAT 100
[2017-09-03] MEDS ORDERED: Vancomycin 1gm in NS 250ml 1 GM/250 ML BAG IVPB ONE (19:00)
== END 2017-09-03 17:27 | disposition home or self-care (01) | DRG 478 ==
LOC: ED 15:08 → ERH 16:05 → 5RNO 17:39
PROVIDERS: ADMIT Internal Medicine; ATTEND Internal Medicine
PROC: 0Q903ZX Drainage of Lumbar Vertebra, Percutaneous Approach, Diagnostic (ICD-10-PCS; principal; 2017-08-29 14:30)
PROC: 02HV33Z Insertion of Infusion Device into Superior Vena Cava, Percutaneous Approach (ICD-10-PCS; 2017-08-31)
PROC: B548ZZA Ultrasonography of Superior Vena Cava, Guidance (ICD-10-PCS; 2017-08-31)
DX: M46.26 Osteomyelitis of vertebra, lumbar region (principal); T84.52XA Infection and inflammatory reaction due to internal left hip prosthesis, initial encounter; L97.329 Non-pressure chronic ulcer of left ankle with unspecified severity; D47.2 Monoclonal gammopathy; A49.01 Methicillin susceptible Staphylococcus aureus infection, unspecified site; L97.529 Non-pressure chronic ulcer of other part of left foot with unspecified severity; I10 Essential (primary) hypertension; M46.40 Discitis, unspecified, site unspecified; Y83.1 Surgical operation with implant of artificial internal device as the cause of abnormal reaction of the patient, or of later complication, without mention of misadventure at the time of the procedure; D50.9 Iron deficiency anemia, unspecified; E66.9 Obesity, unspecified; Z68.35 Body mass index [BMI] 35.0-35.9, adult; I73.9 Peripheral vascular disease, unspecified; M19.90 Unspecified osteoarthritis, unspecified site; Z80.0 Family history of malignant neoplasm of digestive organs; Z87.442 Personal history of urinary calculi; Z88.1 Allergy status to other antibiotic agents; Z98.1 Arthrodesis status; Z88.6 Allergy status to analgesic agent; Z91.048 Other nonmedicinal substance allergy status; R40.2412 Glasgow coma scale score 13-15, at arrival to emergency department

== ENCOUNTER 2018-11-08 08:42 | Outpatient (CLI) | payer OTHER | END 2018-11-08 08:43 | disposition home or self-care (01) | LOC: LAB 08:42 ==

== ENCOUNTER 2018-12-16 07:09 | Outpatient (CLI) | payer OTHER | END 2018-12-16 07:10 | disposition home or self-care (01) | LOC: LAB 07:09 ==

== ENCOUNTER 2018-12-17 07:44 | Outpatient (CLI) | payer OTHER | END 2018-12-17 07:45 | disposition home or self-care (01) | LOC: LAB 07:44 ==

== ENCOUNTER 2018-12-31 07:20 | Outpatient (CLI) | payer OTHER | END 2018-12-31 07:21 | disposition home or self-care (01) | LOC: LAB 07:20 ==

== ENCOUNTER 2019-01-20 10:45 | Outpatient (CLI) | payer OTHER | END 2019-01-20 10:46 | disposition home or self-care (01) | LOC: RAD 10:45 ==

== ENCOUNTER 2019-02-05 07:24 | Outpatient (CLI) | payer OTHER | END 2019-02-05 07:25 | disposition home or self-care (01) | LOC: LAB 07:24 ==